=== PATIENT | male | born 1960 | race Caucasian/White ===

== ENCOUNTER 2021-11-14 07:06 | Outpatient (REF) | payer OTHER, SELFPAY ==
[2021-11-14 07:22] LABS: MANUAL DIFF FLAG NO
[2021-11-14 07:39] LABS: Appearance Urine CLEAR; Color Urine YELLOW; Glucose Urine UA NEG (NEG); Leukocyte Esterase Urine NEG (NEG); Nitrite Urine NEG (NEG); Urine Blood NEG (NEG); Urine Ketones NEG (NEG); Urine Protein NEG (NEG-TRACE)
[2021-11-14 07:44] LABS: Basophils Percent Auto 0.6 % (0-2); Eosinophils Absolute Auto 0.2 X10*3/uL (0.0-0.4); Eosinophils Percent Auto 3.3 % (0-4); Hematocrit 43.5 % (42.0-52.0); Hemoglobin 13.8 g/dl (14.0-18.0); Imm Gran Abs Auto 0.02 X10*3/uL (0.00-0.03); Imm Gran Pct Auto 0.3 % (0.0-0.4); Lymphocytes Absolute Auto 1.6 X10*3/uL (1.2-4.9); Lymphocytes Percent Auto 21.6 % (20-40); Mean Corpuscular HGB Conc 31.7 g/dl (31.0-36.0); Mean Corpuscular Hemoglobin 25.2 pg (27.0-33.0); Mean Corpuscular Volume 79.5 fL (80.0-98.0); Mean Platelet Volume 10.8 fL (9.4-12.4); Monocytes Absolute Auto 0.6 X10*3/uL (0.1-1.2); Monocytes Percent Auto 8.5 % (2-11); Neutrophils Absolute Auto 4.7 x10*3/uL (2.0-8.3); Neutrophils Percent Auto 65.7 % (45-73); Platelet Count 200 X10*3/uL (160-400); Red Blood Count 5.47 X10*6/uL (4.60-5.80); Red Cell Distribution Width 14.6 % (11.0-16.0); White Blood Count 7.2 X10*3/uL (4.8-10.8)
[2021-11-14 08:08] LABS: Alanine Aminotransferase 15 U/L (0-40); Albumin Level 4.3 g/dL (3.5-5.0); Alkaline Phosphatase 77 U/L (39-117); Anion Gap 11 (12-20); Aspartate Amino Transferase 17 U/L (5-37); Bilirubin Total 0.5 mg/dL (0.0-1.0); Blood Urea Nitrogen 13 mg/dL (9-16); Calcium 9.7 mg/dL (8.4-10.2); Carbon Dioxide 28 mmol/L (22-29); Chloride 104 mmol/L (96-108); Cholesterol 157 mg/dL; Estimated Glomerular Filt Rate > 60; Glucose Fasting 96 mg/dL (60-99); HDL Cholesterol 31 mg/dL; LDL Cholesterol Calculated 102 mg/dl; Potassium 4.7 mmol/L (3.3-5.1); Sodium 138 mmol/L (135-145); Total Protein 7.3 g/dL (6.5-8.0); Triglycerides 121 mg/dL
[2021-11-14 08:27] LABS: Estimated Average Glucose 97 mg/dL
[2021-11-14 08:29] LABS: Prostate Specific Antigen Scr 0.25 ng/mL (<0.05-4.0); TSH reflex Free T4 1.81 uIU/mL (0.32-4.0); Vitamin D 25-OH Total 29.3 ng/mL (>30)
== END 2021-11-14 07:07 | disposition home or self-care (01) ==
LOC: HO.LAB 07:06
PROVIDERS: PCP Internal Medicine; Visit Provider Internal Medicine
DX: Z00.00 Encounter for general adult medical examination without abnormal findings (principal); Z12.5 Encounter for screening for malignant neoplasm of prostate; I10 Essential (primary) hypertension; E78.00 Pure hypercholesterolemia, unspecified; E55.9 Vitamin D deficiency, unspecified; R73.01 Impaired fasting glucose
CPT/HCPCS: 36415; 80053; 80061; 81003; 82306; 83036; 84153; 84443; 85025

== ENCOUNTER → 2021-12-22 11:06 | Outpatient (BNVA) | payer OTHER, SELFPAY | PROVIDERS: PCP Internal Medicine; Visit Provider Nurse Practitioner Family | DX: R40.0 Somnolence (principal); R06.83 Snoring | CPT/HCPCS: 99202 ==

== ENCOUNTER → 2022-02-08 13:56 | Outpatient (REF) | payer OTHER, SELFPAY | LOC: HO.SL 13:56 | PROVIDERS: PCP Internal Medicine; Visit Provider Nurse Practitioner Family | DX: G47.33 Obstructive sleep apnea (adult) (pediatric) (principal); R06.83 Snoring; R40.0 Somnolence | CPT/HCPCS: 95806 ==

== ENCOUNTER 2022-07-24 07:22 | Outpatient (REF) | payer OTHER, SELFPAY ==
[2022-07-24 07:48] LABS: MANUAL DIFF FLAG NO
[2022-07-24 08:29] LABS: Basophils Percent Auto 0.7 % (0-2); Eosinophils Absolute Auto 0.2 X10*3/uL (0.0-0.4); Eosinophils Percent Auto 3.9 % (0-4); Hematocrit 44.3 % (42.0-52.0); Imm Gran Abs Auto 0.03 X10*3/uL (0.00-0.03); Imm Gran Pct Auto 0.5 % (0.0-0.4); Lymphocytes Percent Auto 17.5 % (20-40); Mean Corpuscular HGB Conc 31.6 g/dl (31.0-36.0); Mean Corpuscular Hemoglobin 25.7 pg (27.0-33.0); Mean Corpuscular Volume 81.3 fL (80.0-98.0); Mean Platelet Volume 10.9 fL (9.4-12.4); Monocytes Absolute Auto 0.7 X10*3/uL (0.1-1.2); Monocytes Percent Auto 11.6 % (2-11); Neutrophils Absolute Auto 3.8 x10*3/uL (2.0-8.3); Neutrophils Percent Auto 65.8 % (45-73); Platelet Count 196 X10*3/uL (160-400); Red Blood Count 5.45 X10*6/uL (4.60-5.80); White Blood Count 5.8 X10*3/uL (4.8-10.8)
[2022-07-24 09:17] LABS: Alanine Aminotransferase 20 U/L (0-40); Albumin Level 4.2 g/dL (3.5-5.0); Alkaline Phosphatase 82 U/L (39-117); Anion Gap 14 (12-20); Aspartate Amino Transferase 21 U/L (5-37); Bilirubin Total 0.5 mg/dL (0.0-1.0); Blood Urea Nitrogen 11 mg/dL (9-16); Carbon Dioxide 25 mmol/L (22-29); Chloride 105 mmol/L (96-108); Cholesterol 205 mg/dL; Estimated Glomerular Filt Rate > 60; Glucose Fasting 94 mg/dL (60-99); HDL Cholesterol 29 mg/dL; LDL Cholesterol Calculated 141 mg/dl; Potassium 4.6 mmol/L (3.3-5.1); Sodium 139 mmol/L (135-145); Triglycerides 179 mg/dL
[2022-07-24 09:25] LABS: Prostate Specific Antigen 0.17 ng/mL (<0.05-4.0); TSH reflex Free T4 1.65 uIU/mL (0.32-4.0); Vitamin D 25-OH Total 26.5 ng/mL (>30)
[2022-07-24 10:33] LABS: Appearance Urine Clear; Color Urine Yellow; Glucose Urine UA Negative (Negative); Leukocyte Esterase Urine Negative (Negative); Nitrite Urine Negative (Negative); Specific Gravity - Urine 1.015 (1.005-1.025); Urine Blood Negative (Negative); Urine Ketones Negative (Negative); Urine Protein Negative (Neg-Trace)
== END 2022-07-24 07:23 | disposition home or self-care (01) ==
LOC: HO.LAB 07:22
PROVIDERS: PCP Internal Medicine; Visit Provider Internal Medicine
DX: Z00.00 Encounter for general adult medical examination without abnormal findings (principal); I10 Essential (primary) hypertension; E78.00 Pure hypercholesterolemia, unspecified; N40.0 Benign prostatic hyperplasia without lower urinary tract symptoms; E55.9 Vitamin D deficiency, unspecified; Z12.5 Encounter for screening for malignant neoplasm of prostate
CPT/HCPCS: 36415; 80053; 80061; 81003; 82306; 84153; 84443; 85025

== ENCOUNTER 2022-12-13 06:15 | Outpatient (REF) | payer OTHER, SELFPAY ==
[2022-12-13 08:03] LABS: Alanine Aminotransferase 24 U/L (0-40); Albumin Level 4.2 g/dL (3.5-5.0); Alkaline Phosphatase 72 U/L (39-117); Anion Gap 11 (12-20); Aspartate Amino Transferase 21 U/L (5-37); Bilirubin Total 0.6 mg/dL (0.0-1.0); Blood Urea Nitrogen 13 mg/dL (9-16); Calcium 9.2 mg/dL (8.4-10.2); Carbon Dioxide 29 mmol/L (22-29); Chloride 108 mmol/L (96-108); Cholesterol 180 mg/dL; Estimated Glomerular Filt Rate > 60; Glucose Fasting 99 mg/dL (60-99); HDL Cholesterol 32 mg/dL; LDL Cholesterol Calculated 121 mg/dl; Potassium 4.6 mmol/L (3.3-5.1); Sodium 143 mmol/L (135-145); Total Protein 6.7 g/dL (6.5-8.0); Triglycerides 135 mg/dL
[2022-12-13 08:20] LABS: Vitamin D 25-OH Total 44.1 ng/mL (>30)
== END 2022-12-13 06:16 | disposition home or self-care (01) ==
LOC: HO.LAB 06:15
PROVIDERS: PCP Internal Medicine; Visit Provider Internal Medicine
DX: E78.00 Pure hypercholesterolemia, unspecified (principal); E55.9 Vitamin D deficiency, unspecified
CPT/HCPCS: 36415; 80053; 80061; 82306

== ENCOUNTER 2023-07-29 06:10 | Outpatient (REF) | payer OTHER, SELFPAY ==
[2023-07-29 06:27] LABS: MANUAL DIFF FLAG NO
[2023-07-29 07:27] LABS: Basophils Percent Auto 0.5 % (0-2); Eosinophils Absolute Auto 0.3 X10*3/uL (0.0-0.4); Eosinophils Percent Auto 4.7 % (0-4); Hematocrit 34.9 % (42.0-52.0); Hemoglobin 10.2 g/dl (14.0-18.0); Imm Gran Abs Auto 0.02 X10*3/uL (0.00-0.03); Imm Gran Pct Auto 0.3 % (0.0-0.4); Lymphocytes Absolute Auto 1.6 X10*3/uL (1.2-4.9); Lymphocytes Percent Auto 26.4 % (20-40); Mean Corpuscular HGB Conc 29.2 g/dl (31.0-36.0); Mean Corpuscular Hemoglobin 20.5 pg (27.0-33.0); Mean Corpuscular Volume 70.2 fL (80.0-98.0); Mean Platelet Volume 10.7 fL (9.4-12.4); Monocytes Absolute Auto 0.6 X10*3/uL (0.1-1.2); Monocytes Percent Auto 9.1 % (2-11); Neutrophils Absolute Auto 3.6 x10*3/uL (2.0-8.3); Platelet Count 265 X10*3/uL (160-400); Red Blood Count 4.97 X10*6/uL (4.60-5.80); Red Cell Distribution Width 16.5 % (11.0-16.0)
[2023-07-29 07:28] LABS: White Blood Count 6.1 X10*3/uL (4.8-10.8)
[2023-07-29 08:02] LABS: Alanine Aminotransferase 18 U/L (0-40); Albumin Level 4.3 g/dL (3.5-5.0); Alkaline Phosphatase 57 U/L (39-117); Anion Gap 12 (12-20); Aspartate Amino Transferase 19 U/L (5-37); Bilirubin Total 0.6 mg/dL (0.0-1.0); Blood Urea Nitrogen 15 mg/dL (9-16); Calcium 9.7 mg/dL (8.4-10.2); Carbon Dioxide 25 mmol/L (22-29); Chloride 107 mmol/L (96-108); Cholesterol 148 mg/dL (<200); Estimated Glomerular Filt Rate > 60; Glucose Fasting 97 mg/dL (60-99); HDL Cholesterol 37 mg/dL (>40); LDL Cholesterol Calculated 93 mg/dL (<100); Potassium 4.7 mmol/L (3.3-5.1); Sodium 139 mmol/L (135-145); Triglycerides 93 mg/dL (<150)
[2023-07-29 08:19] LABS: Vitamin D 25-OH Total 42.6 ng/mL (>30)
[2023-07-29 08:28] LABS: Appearance Urine Clear; Color Urine Yellow; Glucose Urine UA Negative (Negative); Leukocyte Esterase Urine Negative (Negative); Nitrite Urine Negative (Negative); PH 6.5 (5.0-9.0); Specific Gravity - Urine 1.015 (1.005-1.025); Urine Blood Negative (Negative); Urine Ketones Negative (Negative); Urine Protein Negative (Neg-Trace)
== END 2023-07-29 06:11 | disposition home or self-care (01) ==
LOC: HO.LAB 06:10
PROVIDERS: PCP Internal Medicine; Visit Provider Internal Medicine
DX: R30.0 Dysuria (principal); I10 Essential (primary) hypertension; E55.9 Vitamin D deficiency, unspecified; E78.00 Pure hypercholesterolemia, unspecified
CPT/HCPCS: 36415; 80053; 80061; 81003; 82306; 85025

== ENCOUNTER 2023-10-28 06:04 | Outpatient (REF) | payer OTHER, SELFPAY ==
[2023-10-28 06:29] LABS: MANUAL DIFF FLAG NO
[2023-10-28 07:25] LABS: Basophils Absolute Auto 0.1 X10*3/uL (0.0-0.2); Eosinophils Absolute Auto 0.3 X10*3/uL (0.0-0.4); Eosinophils Percent Auto 5.2 % (0-4); Hematocrit 33.5 % (42.0-52.0); Hemoglobin 9.6 g/dl (14.0-18.0); Imm Gran Abs Auto 0.02 X10*3/uL (0.00-0.03); Imm Gran Pct Auto 0.4 % (0.0-0.4); Lymphocytes Absolute Auto 1.3 X10*3/uL (1.2-4.9); Lymphocytes Percent Auto 25.4 % (20-40); Mean Corpuscular HGB Conc 28.7 g/dl (31.0-36.0); Mean Corpuscular Hemoglobin 19.6 pg (27.0-33.0); Mean Corpuscular Volume 68.2 fL (80.0-98.0); Mean Platelet Volume 10.4 fL (9.4-12.4); Monocytes Absolute Auto 0.4 X10*3/uL (0.1-1.2); Monocytes Percent Auto 8.2 % (2-11); Neutrophils Absolute Auto 3.1 x10*3/uL (2.0-8.3); Neutrophils Percent Auto 59.8 % (45-73); Platelet Count 239 X10*3/uL (160-400); Red Blood Count 4.91 X10*6/uL (4.60-5.80); Red Cell Distribution Width 17.6 % (11.0-16.0); White Blood Count 5.2 X10*3/uL (4.8-10.8)
[2023-10-28 07:43] LABS: Appearance Urine Clear; Color Urine Yellow; Glucose Urine UA Negative (Negative); Leukocyte Esterase Urine Negative (Negative); Nitrite Urine Negative (Negative); Urine Blood Negative (Negative); Urine Ketones Negative (Negative); Urine Protein Negative (Neg-Trace)
[2023-10-28 07:48] LABS: Alanine Aminotransferase 19 U/L (0-40); Albumin Level 4.1 g/dL (3.5-5.0); Alkaline Phosphatase 52 U/L (39-117); Anion Gap 14 (12-20); Aspartate Amino Transferase 19 U/L (5-37); Bilirubin Total 0.5 mg/dL (0.0-1.0); Blood Urea Nitrogen 13 mg/dL (9-16); Calcium 9.4 mg/dL (8.4-10.2); Carbon Dioxide 24 mmol/L (22-29); Chloride 108 mmol/L (96-108); Cholesterol 164 mg/dL (<200); Estimated Glomerular Filt Rate > 60; Glucose Fasting 94 mg/dL (60-99); HDL Cholesterol 36 mg/dL (>40); LDL Cholesterol Calculated 106 mg/dL (<100); Potassium 4.5 mmol/L (3.3-5.1); Sodium 141 mmol/L (135-145); Triglycerides 114 mg/dL (<150)
== END 2023-10-28 06:05 | disposition home or self-care (01) ==
LOC: HO.LAB 06:04
PROVIDERS: PCP Internal Medicine; Visit Provider Internal Medicine
DX: R30.0 Dysuria (principal); E78.00 Pure hypercholesterolemia, unspecified; I10 Essential (primary) hypertension
CPT/HCPCS: 36415; 80053; 80061; 81003; 85025

== ENCOUNTER 2023-11-02 15:31 | Outpatient (AMB) | payer OTHER, SELFPAY ==
[2023-11-02 15:35] VITALS: BP 118/82; PULSE 79; O2SAT 98; BMI 35.0
--- NOTE | 2023-11-02 15:35 | A.OFFPC_ITS ---
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 Accompanied by: Self / Same As Patient Allergies No Known Allergies [No Known Allergies*] Allergy (Verified 11/02/23 16:11) Medication List - Last Reconciled 11/02/23 by Mahamed Matos MD atorvastatin 10 mg PO BEDTIME 90 days ketoconazole 2% topical lisinopril 5 mg PO DAILY 90 days Tobacco use date assessed: 11/02/23 Dental Screening Dental Screen Date: 11/02/23 Did you have a dental visit in the last 12 months?: Yes Did you have a dental problem in the last 6 months where you did not have access to dental care?: No Was dental information given to patient?: Patient has dentist HPI HTN, hyperlipidemia HPI Details Patient comes in today for his follow up visit States that he feels okay Has noticed some fatigue lately but states that he has been working long hours often lately and was attributing his fatigue to that He denies any headaches or dizziness Denies any chest pains, no SOB No nausea/vomiting, no abdominal pain No change in bowel habits noted Had his follow up labs done a few days ago - to discuss his results [facility] Medical History Obstructive sleep apnea Vitamin D deficiency Pure hypercholesterolemia Obesity (BMI 30-39.9) Benign essential hypertension Surgical History Hx of colonoscopy (~09/2018) History of reversal of ileostomy S/P colon resection History of tonsillectomy and adenoidectomy Family History Father No problems noted. Mother Diabetes Hypertension Asthma Social History Housing: House Alcohol intake: current Alcohol intake frequency: holidays/special occasions only Alcohol type: beer Patient Tobacco Use Status: Former Tobacco user e-Cigarette/Vaping Use: Never Used Second Hand Smoke Exposure: Yes service: No Current occupational status: employed Cognitive needs: No Hearing needs: No Vision needs: Yes Questionnaire PHQ-9 Over the last 2 weeks, how often have you been bothered by any of the following problems? 1. Little interest or pleasure in doing things: not at all 2. Feeling down, depressed, or hopeless: not at all 3. Trouble falling or staying asleep, or sleeping too much: not at all 4. Feeling tired or having little energy: not at all 5. Poor appetite or overeating: not at all 6. Feeling bad about yourself - or that you are a failure or have let yourself or your family down: not at all 7. Trouble concentrating on things, such as reading the newspaper or watching television: not at all 8. Moving or speaking so slowly that other people could have noticed. Or the opposite - being so fidgety or restless that you have been moving around a lot more than usual: not at all 9. Thoughts that you would be better off or of hurting yourself in some way: not at all Total score: 0 Depression Screening Interpretation: Negative Depression Screening Done: Yes 38086 - PHQ-9 Billing: Yes Source: Developed by Drs. Mahendra Gonzalez, Nini Martinez, Howard Paredes and colleagues, with an educational festus from [employer]. Thrive Questionnaire Date Thrive assessed: 11/02/23 I am a: Patient What is your living situation today?: I have a steady place to live Within the past 12 months, did the food you bought not last and you didn't have the money to get more?: Never true Within the past 12 months, did you worry whether your food would run out before you got money to buy more?: Never true Do you have trouble paying for medicines?: No Do you have trouble getting transportation to medical appointments?: No Do you have trouble paying your heating and electricity bill?: No Do you have trouble taking care of your child, family member or friend?: No Do you have trouble with day-to-day activities such as bathing, preparing meals, shopping, managing finances, etc.?: No Are you currently unemployed and looking for a job?: No Are you interested in more education?: No Please select the resources that you would like help with: None Currently or been in a relationship where the following occur: no concerns reported THRIVE Score: 0 AUDIT C Alcohol Use Questionnaire (AUDIT-C) 1. How often do you have a drink containing alcohol?: Never 3. How often do you have six or more drinks on one occasion?: Never Total Score: 0 Score Reviewed/Action Taken: Yes BRITTNI-7 AMB Questionnaire BRITTNI-7 Date BRITTNI - 7 assessed: 11/02/23 Feeling nervous, anxious, or on edge: 0 = Not at all Not being able to stop or control worryin = Not at all Worrying too much about different things: 0 = Not at all Trouble relaxin = Not at all Being so restless that it is hard to sit still: 0 = Not at all Becoming easily annoyed or irritable: 0 = Not at all Feeling afraid as if something awful might happen: 0 = Not at all Total BRITTNI-7 score (0-4 normal; 5-9 mild; 10-14 moderate; 15-21 severe): 0 Source: Developed by Drs. Mahendra Gonzalez, Nini Martinez, Howard Paredes and colleagues, with an educational festus from [employer]. Review of Systems Const Denies chills, Denies fatigue, Denies fever(s) and Denies headache(s) ENT Denies dysphagia, Denies dizziness, Denies otalgia, Denies headache(s), Denies neck pain, Denies odynophagia and Denies sore throat Card Denies chest pain, Denies palpitations and Denies dyspnea Resp Denies cough, Denies dyspnea and Denies wheezing GI Denies abdominal pain, Denies constipation, Denies dysphagia, Denies heartburn, Denies diarrhea, Denies nausea, Denies odynophagia and Denies vomiting Denies dysuria, Denies nocturia and Denies urinary frequency Musc Denies back pain and Denies neck pain Skin/Breast Denies rash Neuro Denies dizziness and Denies headache(s) Endo Denies fatigue and Denies palpitations Aller/Immun Denies wheezing Physical exam (Primary Care) Vital Signs: Last Vital Signs Pulse 79 11/02/23 15:35 BP 118/82 11/02/23 15:35 Pulse Ox 98 11/02/23 15:35 Oxygen Delivery Method Room Air 11/02/23 15:35 BMI result Body Mass Index 35.0 Tobacco/Smoking Status: Tobacco use Status Tobacco use date assessed 11/02/23 11/02/23 15:37 Patient Tobacco Use Status Former Tobacco user 11/02/23 15:37 e-Cigarette/Vaping Use Never Used 11/02/23 15:37 PHQ-9: PHQ-9 Score PHQ-9: Total score 0 11/02/23 15:37 Depression Screening Interpretation: Negative Thrive Assessment: Date of Thrive Assessment Date Thrive assessed 11/02/23 11/02/23 15:37 Currently or been in a relationship where the following occur: no concerns reported Const General: no acute distress and alert HENMT Ears: TM's normal bilaterally and EAC's normal Throat: Yes posterior oropharynx normal and Yes tonsils normal (no TP congesti on) Neck Neck: Yes no lymphadenopathy and Yes supple Resp Auscultation: clear to auscultation bilaterally, no rales and no wheezes Cardio Rate: regular rate Rhythm: regular rhythm Heart sounds: no murmurs GI Palpation (GI): Soft to palpation and nontender Auscultation: normal bowel sounds Extrem General: Yes no clubbing, cyanosis or edema Results Reviewed Results Reviewed: Laboratory Tests 07/29/23 10/28/23 10/28/23 06:25 06:26 06:26 WBC Hgb Hct MCV MCH MCHC RDW Plt Count Sodium Potassium Creatinine Estimated GFR Fasting Glucose Calcium AST ALT Triglycerides Cholesterol LDL Cholesterol, Calc HDL Cholesterol 25-OH Vitamin D Total 42.6 Ur Specific [place] 1.020 Urine Protein Negative Urine Glucose (UA) Negative Urine Blood Negative Urine Nitrite Negative Ur Leukocyte Esterase Negative 10/28/23 06:28 WBC 5.2 Hgb 9.6 L Hct 33.5 L MCV 68.2 L MCH 19.6 L MCHC 28.7 L RDW 17.6 H Plt Count 239 Sodium 141 Potassium 4.5 Creatinine 1.05 Estimated GFR > 60 Fasting Glucose 94 Calcium 9.4 AST 19 ALT 19 Triglycerides 114 Cholesterol 164 LDL Cholesterol, Calc 106 H HDL Cholesterol 36 L 25-OH Vitamin D Total Ur Specific [place] Urine Protein Urine Glucose (UA) Urine Blood Urine Nitrite Ur Leukocyte Esterase Assessment and Plan Assessment & Plan (1) Pure hypercholesterolemia: Code(s): E78.00 - Pure hypercholesterolemia, unspecified Plan: Results of his labs done a few days ago reviewed and discussed with patient Reinforced low cholesterol diet Continue Atorvastatin 10 mg QD Will recheck his labs and fasting lipids in 4 months for follow up (2) Benign essential hypertension: Code(s): I10 - Essential (primary) hypertension Plan: Reinforced low sodium diet - goal is systolic BP of at least 130 mm or less Continue Lisinopril 5 mg QD (3) Anemia, iron deficiency: Code(s): D50.9 - Iron deficiency anemia, unspecified Qualifiers: Iron deficiency anemia type: inadequate dietary iron intake Qualified Code(s): D50.8 - Other iron deficiency anemias Plan: He is advised that his recent labs show (+) anemia, which appears to be likely due to iron deficiency (low MCV and MCH and high RDW) Will start patient on Ferrous sulfate 325 mg QD Will recheck his CBC in 4 months for follow up (4) Vitamin D deficiency: Code(s): E55.9 - Vitamin D deficiency, unspecified Plan: Continue Vitamin D3 2000 units QD (5) Obstructive sleep apnea: Code(s): G47.33 - Obstructive sleep apnea (adult) (pediatric) Plan: Follow up with Sleep Medicine as scheduled (6) Obesity (BMI 30-39.9): Code(s): E66.9 - Obesity, unspecified Plan: Reinforced diet/exercise as tolerated/lose weight (7) Colon cancer screening: Code(s): Z12.11 - Encounter for screening for malignant neoplasm of colon Plan: He is also currently due for a repeat colonoscopy, especially in light of his recent anemia Colonoscopy was last done by Dr. Ahn in 2018 and recommend repeat in 5 years Will refer him back to Dr. Ahn for repeat colonoscopy Plan Follow up in 4 months Orders: Orders Complete Blood Count Auto Diff 4 Months D64.9 - Anemia, unspecified Vitamin B12 and Folate 4 Months E53.8 - Deficiency of other specified B group vitamins Comprehensive [place]. Panel Fast 4 Months E78.00 - Pure hypercholesterolemia, unspecified Lipid Panel 4 Months E78.00 - Pure hypercholesterolemia, unspecified Vitamin D 25-OH Total 4 Months E55.9 - Vitamin D deficiency, unspecified TSH reflex Free T4 4 Months E78.00 - Pure hypercholesterolemia, unspecified Referrals General Surgery Referral Z12.11 - Encounter for screening for malignant neoplasm of colon, Z90.49 - Acquired absence of other specified parts of digestive tract Coding Level of Care Code Est Pt Level 4 (25220) Diagnoses Pure hypercholesterolemia E78.00 Benign essential hypertension I10 Iron deficiency anemia secondary to inadequate dietary iron intake D50.8 Iron deficiency anemia type: inadequate dietary iron intake Vitamin D deficiency E55.9 Obstructive sleep apnea G47.33 Obesity (BMI 30-39.9) E66.9 Colon cancer screening Z12.11
== END 2023-11-02 16:24 | disposition home or self-care (01) ==
PROVIDERS: PCP Internal Medicine; Visit Provider Internal Medicine
DX: E78.00 Pure hypercholesterolemia, unspecified (principal); I10 Essential (primary) hypertension; D50.8 Other iron deficiency anemias; E55.9 Vitamin D deficiency, unspecified; G47.33 Obstructive sleep apnea (adult) (pediatric)
CPT/HCPCS: 99214

== ENCOUNTER 2023-11-14 12:51 | Outpatient (AMB) | payer OTHER, SELFPAY ==
--- NOTE | 2023-11-14 13:01 | A.OFFVIS_ITS ---
Intake Vital Signs 11/14/23 13:06 Height 5 ft 9 in Weight 238 lb BMI 35.1 Intake Visit Reasons: Colonoscopy consult Intake Note: This patient presents for a recall colonoscopy screening. Pt c/o; reports iron deficiency anemia , reports dark stools, reports tiredness, reports fatigue, reports more frequent headaches, reports dizziness at the end of the day. 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 He has a history of right colon resection for colon cancer in 2014. His last colonoscopy was in 2018. He had been recommended to undergo a colonoscopy every 5 years He currently denies GI complaints. He does state that occasionally, is to go to the bathroom twice in 1 day. He also says that he has had some headaches and low energy level the past month or so. His hemoglobin was 9.6 on a routine blood test last month. [facility] Medical History History of colon cancer Obstructive sleep apnea Vitamin D deficiency Pure hypercholesterolemia Obesity (BMI 30-39.9) Benign essential hypertension Surgical History Hx of colonoscopy (~09/2018) History of reversal of ileostomy S/P colon resection History of tonsillectomy and adenoidectomy Family History Father No problems noted. Mother Diabetes Hypertension Asthma Social History Housing: House Alcohol intake: current Alcohol intake frequency: holidays/special occasions only Alcohol type: beer Patient Tobacco Use Status: Former Tobacco user e-Cigarette/Vaping Use: Never Used Second Hand Smoke Exposure: Yes service: No Current occupational status: employed Cognitive needs: No Hearing needs: No Vision needs: Yes Review of Systems Const Denies chills and Denies fever(s) Card Denies chest pain, Denies dyspnea and Denies dyspnea on exertion Resp Denies cough, Denies dyspnea and Denies dyspnea on exertion GI Denies hematochezia and Denies change in bowel habits Denies hematuria and Denies difficulty urinating Musc Denies back pain and Denies limited range of motion Neuro Denies focal weakness and Denies convulsions Psych Denies depression and Denies mood swings Physical Exam Vital Signs: BMI result Body Mass Index 35.1 Const General: comfortable and no acute distress Orientation/consciousness: patient oriented x3 Neck Neck: Yes no lymphadenopathy Resp Auscultation: clear to auscultation bilaterally Cardio Rhythm: regular rhythm GI Palpation (GI): Soft to palpation, nontender and no guarding Neuro General: patient oriented x3 Assessment & Plan Assessment & Plan (1) History of colon cancer: Code(s): Z85.038 - Personal history of other malignant neoplasm of large intestine Plan: I reviewed with him the technique of colonoscopy for screening in view of his personal history of colon cancer. He is anemic as well hemoglobin 1.6 on a blood draw from last month. I explained the risks including but not limited to bleeding, infections, perforation, inherent risks of anesthesia, as well as the benefits and alternatives. He has given consent. Coding Level of Care Code New Pt Level 3 (39672) Diagnoses History of colon cancer Z85.038
[2023-11-14 13:06] VITALS: BMI 35.1
== END 2023-11-14 14:03 | disposition home or self-care (01) ==
PROVIDERS: PCP Internal Medicine; Referring Provider Internal Medicine; Visit Provider Surgery
DX: Z85.038 Personal history of other malignant neoplasm of large intestine (principal)
CPT/HCPCS: 99203

== ENCOUNTER → 2023-11-14 12:51 | Outpatient (BNVA) | payer OTHER, SELFPAY | PROVIDERS: PCP Internal Medicine; Referring Provider Internal Medicine; Visit Provider Surgery ==

== ENCOUNTER 2023-12-02 06:32 | Day surgery (SDC) | payer OTHER, SELFPAY ==
[2023-11-30 07:41] VITALS: BMI 35.3
--- NOTE | 2023-11-30 15:09 | HO.ANESPROP2 ---
HPI - Anesthesia Eval Consult details Narrative: 63yo M for Colonoscopy, possible polypectomy Hx ileostomy s/p reversal PMFSH Active Problems Active Problems: All Active Problems (Updated 11/14/23 @ 13:05 by Erick Ahn MD) History of colon cancer (Acute) Colon cancer screening (Acute) Anemia, iron deficiency (Acute) Keratotic lesion (Acute) Obstructive sleep apnea (Acute) Annual physical exam (Acute) Snoring (Acute) Daytime somnolence (Acute) Vitamin D deficiency (Acute) Pure hypercholesterolemia (Acute) Obesity (BMI 30-39.9) (Acute) Benign essential hypertension (Acute) Past Medical History Medical History History of colon cancer Obstructive sleep apnea Vitamin D deficiency Pure hypercholesterolemia Obesity (BMI 30-39.9) Benign essential hypertension Family History Family History Father No problems noted. Mother Diabetes Hypertension Asthma Surgical History Surgical History Hx of colonoscopy (~09/2018) History of reversal of ileostomy S/P colon resection History of tonsillectomy and adenoidectomy Social History Social History Housing: House Alcohol intake: current Alcohol intake frequency: former alcohol drinker Alcohol type: beer Patient Tobacco Use Status: Former Tobacco user Quit Date: 25 years e-Cigarette/Vaping Use: Never Used Second Hand Smoke Exposure: Yes Use of substances other than those prescribed or required for medical reasons: No Are you DNR?: No Advance Directives: No Advance Directives Information Provided: Yes service: No Current occupational status: employed Cognitive needs: No Hearing needs: No Vision needs: Yes Meds Allergies Allergy/AdvReac Type Severity Reaction Status Date / Time No Known Allergies Allergy Verified 11/14/23 13:10 [No Known Allergies*] Home Medications Medication Instructions Recorded Confirmed Last Taken Type ketoconazole 2 % shampoo topical 11/02/23 11/14/23 Unknown History cholecalciferol (vitamin D3) 125 125 mcg PO DAILY 11/14/23 12/02/23 Unknown History mcg (5,000 unit) capsule ferrous sulfate 325 mg (65 mg 325 mg PO DAILY 11/14/23 12/02/23 11/28/23 History iron) tablet (FeroSul) multivitamin with minerals-folic 1 tab PO DAILY 11/14/23 12/02/23 Unknown History acid 80 mcg chewable tablet (Centrum Adult 50 Plus) Exam Height,Weight and Vital Signs: Height 5 ft 9 in Weight 108.409 kg Assessment and Plan Assessment Anesthesia Assessment: Chart Reviewed
[2023-12-02 06:48] VITALS: BP 143/72; PULSE 58; RESP 18; TEMP 36.3; O2SAT 99; BMI 34.8
[2023-12-02] MEDS: Lactated Ringers 1,000 ML 100 ML IVCONT (07:07)
--- NOTE | 2023-12-02 07:20 | MHC.SHP ---
Pre-Procedural Eval Section A - 24 Hr Update-Section A only Date of Service: 12/02/23 The patient is an INPATIENT: No Changes since office visit: No Cold of Flu in the past 2 weeks, No New Medical Problems, No Changes in Medication and No Patient answered all questions The patient has been examined within 24 hours of the surgical procedure. The History & Physical has been completed within 30 days and I have reviewed it.: Yes Section B - Complete if H&P > 30 days Chief Complaint: Personal history of other malignant neoplasm of la Allergies: Allergies Allergy/AdvReac Type Severity Reaction Status Date / Time No Known Allergies Allergy Verified 11/14/23 13:10 [No Known Allergies*] Plan I have reviewed the history and physical and performed a pertinent physical examination on my patient. No changes have occurred unless specified. Time Spent With Patient Time: Total time managing care of this patient today ____ minutes.
--- NOTE | 2023-12-02 07:57 | P.OP_ITS ---
Operative Note Operative Note Date of Service: 12/02/23 Narrative: Preop diagnosis: History of colon cancer Postop diagnosis: Normal colonoscopy findings Procedure: Colonoscopy Surgeon: Erick Ahn MD The patient is a 63-year-old male who had undergone right colon resection for colon cancer in 2014. He is supposed to have a colonoscopy be 5 years. He understands the technique of the procedure as well as the risks, benefits, and alternatives. The patient was brought to the operating room and placed in left lateral decubitus position under monitored anesthesia care. A surgical time-out was done. A full digital rectal exam was done and this did not reveal any signi ficant anal lesions. The tip of the Olympus colonoscope was gently introduced through the anal orifice advanced with insufflation until we identified transition into the small bowel mucosa. The anastomosis appeared patent without any lesions. We advanced the scope past the anastomosis Transiition from colonic to small bowel mucosa was noted and I proceeded to carefully withdraw the scope. We withdrew the scope carefully with examination of the colonic mucosa being done with scope withdrawal. The patient had good bowel prep and it was unlikely that any lesion may have been missed. There were no lesions seen, there was no polyp or any ulceration. There was no blood in the colon. The rectum was examined The anal canal was unremarkable. The scope was then withdrawn completely with desufflation. The patient tolerated the procedure well. There were no immediate complications. In view of his history of colon cancer, he should have a colonoscopy every 5 years. He does have anemia as well so if this persists, he should have an EGD to and he was reminded about this.
[2023-12-02 07:58] VITALS: BP 116/56; PULSE 59; RESP 16; TEMP 36.2; O2SAT 95
--- NOTE | 2023-12-02 08:07 | HO.ANESPROP2 ---
[facility] Active Problems Active Problems: All Active Problems (Updated 11/14/23 @ 13:05 by Erick Ahn MD) History of colon cancer (Acute) Colon cancer screening (Acute) Anemia, iron deficiency (Acute) Keratotic lesion (Acute) Obstructive sleep apnea (Acute) Annual physical exam (Acute) Snoring (Acute) Daytime somnolence (Acute) Vitamin D deficiency (Acute) Pure hypercholesterolemia (Acute) Obesity (BMI 30-39.9) (Acute) Benign essential hypertension (Acute) Past Medical History Medical History History of colon cancer Obstructive sleep apnea Vitamin D deficiency Pure hypercholesterolemia Obesity (BMI 30-39.9) Benign essential hypertension Functional capacity: independent ambulation Family History Family History Father No problems noted. Mother Diabetes Hypertension Asthma Family history of problems with anesthesia: No Surgical History Surgical History Hx of colonoscopy (~09/2018) History of reversal of ileostomy S/P colon resection History of tonsillectomy and adenoidectomy History of Problems with Anesthesia: No Social History Social History Housing: House Alcohol intake: current Alcohol intake frequency: former alcohol drinker Alcohol type: beer Patient Tobacco Use Status: Former Tobacco user Quit Date: 25 years e-Cigarette/Vaping Use: Never Used Second Hand Smoke Exposure: Yes Use of substances other than those prescribed or required for medical reasons: No Are you DNR?: No Advance Directives: No Advance Directives Information Provided: Yes service: No Current occupational status: employed Cognitive needs: No Hearing needs: No Vision needs: Yes Meds Allergies Allergy/AdvReac Type Severity Reaction Status Date / Time No Known Allergies Allergy Verified 11/14/23 13:10 [No Known Allergies*] Active Medications: Current Medications Lactated Ringer's (Lr) 1,000 mls @ 100 mls/hr IVCONT .Q10H JOE Last Admin: 12/02/23 07:07 Dose: 100 mls/hr Home Medications Medication Instructions Recorded Confirmed Last Taken Type ketoconazole 2 % shampoo topical 11/02/23 11/14/23 Unknown History cholecalciferol (vitamin D3) 125 125 mcg PO DAILY 11/14/23 12/02/23 Unknown History mcg (5,000 unit) capsule ferrous sulfate 325 mg (65 mg 325 mg PO DAILY 11/14/23 12/02/23 11/28/23 History iron) tablet (FeroSul) multivitamin with minerals-folic 1 tab PO DAILY 11/14/23 12/02/23 Unknown History acid 80 mcg chewable tablet (Centrum Adult 50 Plus) Exam Height,Weight and Vital Signs: Height 5 ft 9 in Weight 107.048 kg Last Vital Signs Temp 97.2 F 12/02/23 07:58 Pulse 59 12/02/23 07:58 Resp 16 12/02/23 07:58 BP 116/56 L 12/02/23 07:58 Pulse Ox 95 12/02/23 07:58 O2 Del Method Room Air 12/02/23 07:58 Airway Mallampati Class: III TM Dist: >3cm Neck ROM: Full Heart: RRR Lungs: CTA Assessment and Plan Assessment Anesthesia Assessment: Anesthesia Plan Discussed Final Anesthetic Review Family History of Problems with Anesthesia: No History of Problems with Anesthesia: No NPO: Yes ASA Class: II Final Preanesthetic Review: Meds/Allgs Chart Reviewed, Consent Obtained/Reviewed and Anes Risks/Benef Reviewed Patient Risk: Low Procedure Risk: Low Anesthetic Plan Anesthetic Plan: MAC: Disposition: Standard PACU
--- NOTE | 2023-12-02 08:10 | HO.POSTANES ---
Post Anesthesia Evaluation Post Anesthesia Evaluation Date of Service: 12/02/23 Vital Signs: Vital Signs Temp Pulse Resp BP Pulse Ox O2 Del Method 12/02/23 07:58 97.2 F 59 16 116/56 L 95 Room Air 12/02/23 06:48 97.3 F 58 18 143/72 H 99 Room Air Anesthesia: Monitored Mental Status: Awake Pain Control: Satisfactory Nausea/Vomiting: None Hydration: Adequate Anesthesia-Related Issues: No Anes. Related Issues
[2023-12-02 08:21] VITALS: BP 134/66; PULSE 57; RESP 17; TEMP 36.2; O2SAT 97
== END 2023-12-02 08:47 | disposition home or self-care (01) ==
PROVIDERS: PCP Internal Medicine; Visit Provider Surgery
PROC: 0DJD8ZZ Inspection of Lower Intestinal Tract, Via Natural or Artificial Opening Endoscopic (ICD-10-PCS; CPT 45378; principal; 2023-12-02 07:30)
DX: Z12.11 Encounter for screening for malignant neoplasm of colon (principal); Z85.038 Personal history of other malignant neoplasm of large intestine; Z90.49 Acquired absence of other specified parts of digestive tract; D50.9 Iron deficiency anemia, unspecified; I10 Essential (primary) hypertension; E78.00 Pure hypercholesterolemia, unspecified; E55.9 Vitamin D deficiency, unspecified; R51.9 Headache, unspecified; R53.83 Other fatigue; G47.33 Obstructive sleep apnea (adult) (pediatric); E66.9 Obesity, unspecified; Z68.35 Body mass index [BMI] 35.0-35.9, adult; Z79.899 Other long term (current) drug therapy; Z87.891 Personal history of nicotine dependence
CPT/HCPCS: 45378; J2704

== ENCOUNTER → 2023-12-02 06:32 | Outpatient (BNV) | payer OTHER, SELFPAY | PROVIDERS: PCP Internal Medicine; Visit Provider Surgery | DX: Z85.038 Personal history of other malignant neoplasm of large intestine (principal) | CPT/HCPCS: 45378 ==

== ENCOUNTER 2023-12-15 11:08 | Outpatient (AMB) | payer OTHER, SELFPAY ==
--- NOTE | 2023-12-15 11:20 | A.OFFVIS_ITS ---
Intake Vital Signs 12/15/23 11:21 Height 5 ft 9 in Weight 236 lb BMI 34.8 BP 175/74 H Blood Pressure Location Rt brachial Position Sitting Pulse 71 Intake Visit Reasons: S/P colonoscopy Intake Note: This patient presents for a follow-up assessment status post colonoscopy. Patient c/o; no concerns, reports procedure went well. Inspector Clip On Sunglasses Required: No Accompanied by: Self / Same As Patient Allergies No Known Allergies [No Known Allergies*] Allergy (Verified 12/15/23 11:22) HPI S/P colonoscopy HPI Details He underwent colonoscopy last 12/02/2023. He tolerated the procedure well. He denies complaints at this time. [facility] Medical History History of colon cancer Obstructive sleep apnea Vitamin D deficiency Pure hypercholesterolemia Obesity (BMI 30-39.9) Benign essential hypertension Surgical History Hx of colonoscopy (~09/2018) History of reversal of ileostomy S/P colon resection History of tonsillectomy and adenoidectomy Family History Father No problems noted. Mother Diabetes Hypertension Asthma Social History Housing: House Alcohol intake: current Alcohol intake frequency: former alcohol drinker Alcohol type: beer Patient Tobacco Use Status: Former Tobacco user Quit Date: 25 years e-Cigarette/Vaping Use: Never Used Second Hand Smoke Exposure: Yes service: No Current occupational status: employed Cognitive needs: No Hearing needs: No Vision needs: Yes Review of Systems Const Denies chills and Denies fever(s) Card Denies chest pain, Denies dyspnea and Denies dyspnea on exertion Resp Denies cough, Denies dyspnea and Denies dyspnea on exertion GI Denies hematochezia and Denies change in bowel habits Denies hematuria and Denies difficulty urinating Musc Denies back pain and Denies limited range of motion Neuro Denies focal weakness and Denies convulsions Psych Denies depression and Denies mood swings Physical Exam Vital Signs: Last Vital Signs Pulse 71 12/15/23 11:21 BP 175/74 H 12/15/23 11:21 BMI result Body Mass Index 34.8 Const General: comfortable and no acute distress Resp Effort & Inspection: normal respiratory effort GI Other: Obese Palpation (GI): Soft to palpation, not firm and nontender Assessment & Plan Assessment & Plan (1) History of colon cancer: Code(s): Z85.038 - Personal history of other malignant neoplasm of large intestine Plan: Status post colonoscopy. I did not find any polyps or any lesions. The anastomotic site was seen I told him that in view of his history of colon cancer, he should have a colonoscopy every 5 years. He did have anemia and had been prescribed iron supplements. He says that he is being followed by his PCP for this. Coding Level of Care Code Global (80362) Diagnoses History of colon cancer Z85.038
[2023-12-15 11:21] VITALS: BP 175/74; PULSE 71; BMI 34.8
== END 2023-12-15 11:28 | disposition home or self-care (01) ==
PROVIDERS: PCP Internal Medicine; Visit Provider Surgery
DX: Z85.038 Personal history of other malignant neoplasm of large intestine (principal)
CPT/HCPCS: 99024

== ENCOUNTER → 2023-12-15 11:08 | Outpatient (BNVA) | payer OTHER, SELFPAY | PROVIDERS: PCP Internal Medicine; Visit Provider Surgery ==

== ENCOUNTER 2024-02-18 07:21 | Outpatient (REF) | payer OTHER, SELFPAY ==
[2024-02-18 07:32] LABS: MANUAL DIFF FLAG NO
[2024-02-18 08:34] LABS: Basophils Percent Auto 0.8 % (0-2); Eosinophils Absolute Auto 0.2 X10*3/uL (0.0-0.4); Eosinophils Percent Auto 3.8 % (0-4); Hematocrit 48.9 % (42.0-52.0); Imm Gran Abs Auto 0.04 X10*3/uL (0.00-0.03); Imm Gran Pct Auto 0.8 % (0.0-0.4); Lymphocytes Absolute Auto 1.5 X10*3/uL (1.2-4.9); Lymphocytes Percent Auto 27.3 % (20-40); Mean Corpuscular HGB Conc 33.1 g/dl (31.0-36.0); Mean Corpuscular Hemoglobin 27.6 pg (27.0-33.0); Mean Corpuscular Volume 83.3 fL (80.0-98.0); Mean Platelet Volume 10.4 fL (9.4-12.4); Monocytes Absolute Auto 0.6 X10*3/uL (0.1-1.2); Monocytes Percent Auto 10.5 % (2-11); Neutrophils Percent Auto 56.8 % (45-73); Platelet Count 194 X10*3/uL (160-400); Red Blood Count 5.87 X10*6/uL (4.60-5.80); Red Cell Distribution Width 17.8 % (11.0-16.0); White Blood Count 5.3 X10*3/uL (4.8-10.8)
[2024-02-18 08:41] LABS: Hemoglobin 16.2 g/dl (14.0-18.0)
[2024-02-18 08:50] LABS: Alanine Aminotransferase 25 U/L (0-40); Albumin Level 4.3 g/dL (3.5-5.0); Alkaline Phosphatase 57 U/L (39-117); Anion Gap 13 (12-20); Aspartate Amino Transferase 20 U/L (5-37); Bilirubin Total 0.6 mg/dL (0.0-1.0); Blood Urea Nitrogen 11 mg/dL (9-16); Calcium 9.3 mg/dL (8.4-10.2); Carbon Dioxide 25 mmol/L (22-29); Chloride 106 mmol/L (96-108); Cholesterol 172 mg/dL (<200); Estimated Glomerular Filt Rate > 60; Glucose Fasting 77 mg/dL (60-99); HDL Cholesterol 37 mg/dL (>40); LDL Cholesterol Calculated 103 mg/dL (<100); Potassium 4.1 mmol/L (3.3-5.1); Sodium 140 mmol/L (135-145); Total Protein 7.1 g/dL (6.5-8.0); Triglycerides 164 mg/dL (<150)
[2024-02-18 09:10] LABS: Folate 14.4 ng/mL (> or = 4.0); Vitamin B12 377 pg/mL (200-900)
[2024-02-18 09:13] LABS: TSH reflex Free T4 1.83 uIU/mL (0.32-4.0); Vitamin D 25-OH Total 38.9 ng/mL (>30)
== END 2024-02-18 07:22 | disposition home or self-care (01) ==
LOC: HO.LAB 07:21
PROVIDERS: PCP Internal Medicine; Visit Provider Internal Medicine
DX: E53.8 Deficiency of other specified B group vitamins (principal); E78.00 Pure hypercholesterolemia, unspecified; D64.9 Anemia, unspecified; E55.9 Vitamin D deficiency, unspecified
CPT/HCPCS: 36415; 80053; 80061; 82306; 82607; 82746; 84443; 85025

== ENCOUNTER 2024-03-02 15:49 | Outpatient (AMB) | payer OTHER, SELFPAY ==
[2024-03-02 15:51] VITALS: BP 132/84; PULSE 85; O2SAT 97; BMI 34.6
--- NOTE | 2024-03-02 15:51 | MHC.PC.OV ---
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 per policy Accompanied by: Self / Same As Patient Allergies No Known Allergies [No Known Allergies*] Allergy (Verified 03/02/24 16:16) Medication List - Last Reconciled 03/02/24 by Mahamed Matos MD atorvastatin 10 mg PO BEDTIME 90 days cholecalciferol (vitamin D3) 125 mcg PO DAILY ferrous sulfate (FeroSul) 325 mg PO DAILY ketoconazole 2% topical lisinopril 5 mg PO DAILY 90 days multivit with min-folic acid 80 mcg (Centrum Adult 50 Plus) 1 tab PO DAILY sodium,potassium,mag sulfates 17.5-3.13-1.6 gram (Suprep Bowel Prep Kit) DILUTE; drink full amount early evening before AND next morning at least 2 hr before procedure; follow w 960 mL water PO Tobacco use date assessed: 11/02/23 Dental Screening Dental Screen Date: 11/02/23 HPI 4 month f/u hyperlipidemia, HTN, anemia HPI Details Patient comes in today for his follow up visit States that he feels okay He denies any headaches or dizziness Denies any chest pains, no SOB No nausea/vomiting, no abdominal pain No change in bowel habits noted He had a repeat colonoscopy done with Dr. Ahn in December 2023 - colonoscopy was normal and he was again recommended for a repeat colonoscopy in 5 years due to his personal Hx of colon cancer He had his follow up labs done a couple of weeks ago - to discuss his results [facility] Medical History History of colon cancer Obstructive sleep apnea Vitamin D deficiency Pure hypercholesterolemia Obesity (BMI 30-39.9) Benign essential hypertension Surgical History Hx of colonoscopy (~09/2018) History of reversal of ileostomy S/P colon resection History of tonsillectomy and adenoidectomy Family History Father No problems noted. Mother Diabetes Hypertension Asthma Social History Housing: House Alcohol intake: current Alcohol intake frequency: former alcohol drinker Alcohol type: beer Patient Tobacco Use Status: Former Tobacco user e-Cigarette/Vaping Use: Never Used Second Hand Smoke Exposure: Yes service: No Current occupational status: employed Cognitive needs: No Hearing needs: No Vision needs: Yes Questionnaire Thrive Questionnaire Date Thrive assessed: 11/02/23 BRITTNI-7 AMB Questionnaire BRITTNI-7 Date BRITTNI - 7 assessed: 11/02/23 Source: Developed by Drs. Mahendra Gonzalez, Nini Martinez, Howard Paredes and colleagues, with an educational festus from [employer]. Review of Systems Const Denies chills, Denies fatigue, Denies fever(s) and Denies headache(s) ENT Denies dysphagia, Denies dizziness, Denies otalgia, Denies headache(s), Denies neck pain, Denies odynophagia and Denies sore throat Card Denies chest pain, Denies palpitations and Denies dyspnea Resp Denies cough, Denies dyspnea and Denies wheezing GI Denies abdominal pain, Denies constipation, Denies dysphagia, Denies heartburn, Denies diarrhea, Denies nausea, Denies odynophagia and Denies vomiting Denies dysuria, Denies nocturia and Denies urinary frequency Musc Denies back pain and Denies neck pain Skin/Breast Denies rash Neuro Denies dizziness and Denies headache(s) Endo Denies fatigue and Denies palpitations Aller/Immun Denies wheezing Physical exam (Primary Care) Vital Signs: Last Vital Signs Pulse 85 03/02/24 15:51 BP 132/84 03/02/24 15:51 Pulse Ox 97 03/02/24 15:51 Oxygen Delivery Method Room Air 03/02/24 15:51 BMI result Body Mass Index 34.6 Tobacco/Smoking Status: Tobacco use Status Tobacco use date assessed 11/02/23 03/02/24 15:56 Patient Tobacco Use Status Former Tobacco user 03/02/24 15:56 e-Cigarette/Vaping Use Never Used 03/02/24 15:56 Thrive Assessment: Date of Thrive Assessment Date Thrive assessed 11/02/23 03/02/24 15:56 Const General: no acute distress and alert HENMT Ears: TM's normal bilaterally and EAC's normal Throat: Yes posterior oropharynx normal and Yes tonsils normal (no TP congestion) Neck Neck: Yes no lymphadenopathy and Yes supple Thyroid: Thyroid normal Resp Auscultation: clear to auscultation bilaterally, no rales and no wheezes Cardio Rate: regular rate Rhythm: regular rhythm Heart sounds: no murmurs GI Palpation (GI): Soft to palpation and nontender Auscultation: normal bowel sounds General: Yes no CVA tenderness Back/Spine/Pelvis Back: no CVA tenderness Skin Rashes: no rashes Extrem General: Yes no clubbing, cyanosis or edema Results Reviewed Results Reviewed: Laboratory Tests 02/18/24 07:31 WBC 5.3 Hgb 16.2 D Hct 48.9 D Plt Count 194 Sodium 140 Potassium 4.1 Creatinine 0.86 Estimated GFR > 60 Fasting Glucose 77 Calcium 9.3 AST 20 ALT 25 Triglycerides 164 H Cholesterol 172 LDL Cholesterol, Calc 103 H HDL Cholesterol 37 L Vitamin B12 377 25-OH Vitamin D Total 38.9 Folate 14.4 TSH 1.83 Assessment and Plan Assessment & Plan (1) Pure hypercholesterolemia: Code(s): E78.00 - Pure hypercholesterolemia, unspecified Plan: Results of his labs done a couple of weeks ago reviewed and discussed with patient Reinforced low cholesterol diet Continue Atorvastatin 10 mg QD Will recheck his labs and fasting lipids in 4 months for follow up (2) Benign essential hypertension: Code(s): I10 - Essential (primary) hypertension Plan: Reinforced low sodium diet - goal is systolic BP of at least 130 mm or less Continue Lisinopril 5 mg QD (3) Anemia, iron deficiency: Code(s): D50.9 - Iron deficiency anemia, unspecified Qualifiers: Iron deficiency anemia type: inadequate dietary iron intake Qualified Code(s): D50.8 - Other iron deficiency anemias Plan: His CBC was normal on his recent labs Continue Ferrous sulfate 325 mg QD Will recheck his CBC in 4 months for follow up (4) Vitamin D deficiency: Code(s): E55.9 - Vitamin D deficiency, unspecified Plan: Continue Vitamin D3 2000 units QD (5) Obstructive sleep apnea: Code(s): G47.33 - Obstructive sleep apnea (adult) (pediatric) Plan: Follow up with Sleep Medicine as scheduled (6) Obesity (BMI 30-39.9): Code(s): E66.9 - Obesity, unspecified Plan: Reinforced diet/exercise as tolerated/lose weight Plan Follow up in 4 months Orders: Orders Complete Blood Count Auto Diff 4 Months D64.9 - Anemia, unspecified Comprehensive [place]. Panel Fast 4 Months E78.00 - Pure hypercholesterolemia, unspecified Lipid Panel 4 Months E78.00 - Pure hypercholesterolemia, unspecified TSH reflex Free T4 4 Months E78.00 - Pure hypercholesterolemia, unspecified UA CC w/rflx Micro + Cult 4 Months R30.0 - Dysuria Vitamin D 25-OH Total 4 Months E55.9 - Vitamin D deficiency, unspecified Coding Level of Care Code Est Pt Level 4 (81925) Diagnoses Pure hypercholesterolemia E78.00 Benign essential hypertension I10 Iron deficiency anemia secondary to inadequate dietary iron intake D50.8 Iron deficiency anemia type: inadequate dietary iron intake Vitamin D deficiency E55.9 Obstructive sleep apnea G47.33 Obesity (BMI 30-39.9) E66.9
== END 2024-03-02 16:30 | disposition home or self-care (01) ==
PROVIDERS: PCP Internal Medicine; Visit Provider Internal Medicine
DX: E78.00 Pure hypercholesterolemia, unspecified (principal); I10 Essential (primary) hypertension; D50.8 Other iron deficiency anemias; E55.9 Vitamin D deficiency, unspecified; G47.33 Obstructive sleep apnea (adult) (pediatric)
CPT/HCPCS: 99214

== ENCOUNTER 2024-06-30 07:00 | Outpatient (REF) | payer OTHER, SELFPAY ==
[2024-06-30 07:15] LABS: MANUAL DIFF FLAG NO
[2024-06-30 07:41] LABS: Basophils Absolute Auto 0.1 X10*3/uL (0.0-0.2); Basophils Percent Auto 1.1 % (0-2); Eosinophils Absolute Auto 0.2 X10*3/uL (0.0-0.4); Eosinophils Percent Auto 3.2 % (0-4); Hematocrit 45.9 % (42.0-52.0); Hemoglobin 16.1 g/dl (14.0-18.0); Imm Gran Abs Auto 0.02 X10*3/uL (0.00-0.03); Imm Gran Pct Auto 0.4 % (0.0-0.4); Lymphocytes Absolute Auto 1.4 X10*3/uL (1.2-4.9); Lymphocytes Percent Auto 28.8 % (20-40); Mean Corpuscular HGB Conc 35.1 g/dl (31.0-36.0); Mean Corpuscular Hemoglobin 30.8 pg (27.0-33.0); Mean Corpuscular Volume 87.8 fL (80.0-98.0); Mean Platelet Volume 10.3 fL (9.4-12.4); Monocytes Absolute Auto 0.4 X10*3/uL (0.1-1.2); Monocytes Percent Auto 8.2 % (2-11); Neutrophils Absolute Auto 2.8 x10*3/uL (2.0-8.3); Neutrophils Percent Auto 58.3 % (45-73); Platelet Count 183 X10*3/uL (160-400); Red Blood Count 5.23 X10*6/uL (4.60-5.80); Red Cell Distribution Width 13.1 % (11.0-16.0); White Blood Count 4.8 X10*3/uL (4.8-10.8)
[2024-06-30 08:20] LABS: Alanine Aminotransferase 19 U/L (0-40); Albumin Level 4.3 g/dL (3.5-5.0); Alkaline Phosphatase 65 U/L (39-117); Anion Gap 11 (12-20); Aspartate Amino Transferase 19 U/L (5-37); Blood Urea Nitrogen 12 mg/dL (9-16); Calcium 9.8 mg/dL (8.4-10.2); Carbon Dioxide 27 mmol/L (22-29); Chloride 107 mmol/L (96-108); Cholesterol 159 mg/dL (<200); Estimated Glomerular Filt Rate > 60; Glucose Fasting 93 mg/dL (60-99); HDL Cholesterol 32 mg/dL (>40); LDL Cholesterol Calculated 102 mg/dL (<100); Potassium 4.3 mmol/L (3.3-5.1); Sodium 141 mmol/L (135-145); Total Protein 7.1 g/dL (6.5-8.0); Triglycerides 128 mg/dL (<150)
[2024-06-30 08:35] LABS: TSH reflex Free T4 1.48 uIU/mL (0.32-4.0)
[2024-06-30 08:42] LABS: Appearance Urine Clear; Color Urine Yellow; Glucose Urine UA Negative (Negative); Leukocyte Esterase Urine Negative (Negative); Nitrite Urine Negative (Negative); Specific Gravity - Urine 1.015 (1.005-1.025); Urine Blood Negative (Negative); Urine Ketones Negative (Negative); Urine Protein Negative (Neg-Trace)
== END 2024-06-30 07:01 | disposition home or self-care (01) ==
LOC: HO.LAB 07:00
PROVIDERS: PCP Internal Medicine; Visit Provider Internal Medicine
DX: D64.9 Anemia, unspecified (principal); R30.0 Dysuria; E78.00 Pure hypercholesterolemia, unspecified; E55.9 Vitamin D deficiency, unspecified
CPT/HCPCS: 36415; 80053; 80061; 81003; 82306; 84443; 85025

== ENCOUNTER 2024-07-03 15:39 | Outpatient (AMB) | payer OTHER, SELFPAY ==
[2024-07-03 15:41] VITALS: BP 136/84; PULSE 77; O2SAT 95; BMI 34.5
--- NOTE | 2024-07-03 15:41 | A.OFFPC_ITS ---
Vital Signs 07/03/24 15:41 Height 5 ft 9 in Weight 233 lb 8 oz BMI 34.5 BP 136/84 Blood Pressure Location Lt brachial Position Sitting Pulse 77 Pulse Source Pulse Oximeter Pulse Oximetry (%) 95 Oxygen Delivery Method Room Air Intake Visit Reasons: HTN, hyperlipidemia, anemia, Hx of colon cancer Records Management Manager Required: No Accompanied by: Self / Same As Patient Allergies No Known Allergies [No Known Allergies*] Allergy (Verified 07/03/24 16:24) Medication List - Last Reconciled 07/03/24 by Mahamed Matos MD atorvastatin 10 mg PO BEDTIME 90 days cholecalciferol (vitamin D3) 125 mcg PO DAILY ferrous sulfate (FeroSul) 325 mg PO DAILY ketoconazole 2% topical lisinopril 5 mg PO DAILY 90 days multivit with min-folic acid 80 mcg (Centrum Adult 50 Plus) 1 tab PO DAILY sodium,potassium,mag sulfates 17.5-3.13-1.6 gram (Suprep Bowel Prep Kit) DILUTE; drink full amount early evening before AND next morning at least 2 hr before procedure; follow w 960 mL water PO Tobacco use date assessed: 07/03/24 Dental Screening Dental Screen Date: 07/03/24 Did you have a dental visit in the last 12 months?: No Did you have a dental problem in the last 6 months where you did not have access to dental care?: No Was dental information given to patient?: No HPI HTN, hyperlipidemia, anemia, Hx of colon cancer HPI Details Patient comes in today for his follow up visit States that he feels okay He denies any headaches or dizziness Denies any chest pains, no SOB No nausea/vomiting, no abdominal pain No change in bowel habits noted He had his follow up labs done a few days ago - to discuss his results [facility] Medical History History of colon cancer Obstructive sleep apnea Vitamin D deficiency Pure hypercholesterolemia Obesity (BMI 30-39.9) Benign essential hypertension Surgical History Hx of colonoscopy (~09/2018) History of reversal of ileostomy S/P colon resection History of tonsillectomy and adenoidectomy Family History Father No problems noted. Mother Diabetes Hypertension Asthma Social History Housing: House Alcohol intake: current Alcohol intake frequency: former alcohol drinker Alc ohol type: beer Patient Tobacco Use Status: Former Tobacco user e-Cigarette/Vaping Use: Never Used Second Hand Smoke Exposure: Yes service: No Current occupational status: employed Cognitive needs: No Hearing needs: No Vision needs: Yes Questionnaire PHQ-9 Over the last 2 weeks, how often have you been bothered by any of the following problems? 1. Little interest or pleasure in doing things: not at all 2. Feeling down, depressed, or hopeless: not at all 3. Trouble falling or staying asleep, or sleeping too much: not at all 4. Feeling tired or having little energy: not at all 5. Poor appetite or overeating: not at all 6. Feeling bad about yourself - or that you are a failure or have let yourself or your family down: not at all 7. Trouble concentrating on things, such as reading the newspaper or watching television: not at all 8. Moving or speaking so slowly that other people could have noticed. Or the opposite - being so fidgety or restless that you have been moving around a lot more than usual: not at all 9. Thoughts that you would be better off or of hurting yourself in some way: not at all Total score: 0 Depression Screening Interpretation: Negative Depression Screening Done: Yes 41441 - PHQ-9 Billing: Yes Source: Developed by Drs. Mahendra Gonzalez, Nini Martinez, Howard Paredes and colleagues, with an educational festus from [employer]. Thrive Questionnaire Date Thrive assessed: 07/03/24 I am a: Patient What is your living situation today?: I have a steady place to live Within the past 12 months, did the food you bought not last and you didn't have the money to get more?: Never true Within the past 12 months, did you worry whether your food would run out before you got money to buy more?: Never true Do you have trouble paying for medicines?: No Do you have trouble getting transportation to medical appointments?: No Do you have trouble paying your heating and electricity bill?: No Do you have trouble taking care of your child, family member or friend?: No Do you have trouble with day-to-day activities such as bathing, preparing meals, shopping, managing finances, etc.?: No Are you currently unemployed and looking for a job?: No Are you interested in more education?: No Please select the resources that you would like help with: None Currently or been in a relationship where the following occur: No concerns reported THRIVE Score: 0 AUDIT C Alcohol Use Questionnaire (AUDIT-C) 1. How often do you have a drink containing alcohol?: Never 3. How often do you have six or more drinks on one occasion?: Less than monthly Total Score: 1 Score Reviewed/Action Taken: Yes BRITTNI-7 AMB Questionnaire BRITTNI-7 Date BRITTNI - 7 assessed: 07/03/24 Feeling nervous, anxious, or on edge: 0 = Not at all Not being able to stop or control worryin = Not at all Worrying too much about different things: 0 = Not at all Trouble relaxin = Not at all Being so restless that it is hard to sit still: 0 = Not at all Becoming easily annoyed or irritable: 0 = Not at all Feeling afraid as if something awful might happen: 0 = Not at all Total BRITTNI-7 score (0-4 normal; 5-9 mild; 10-14 moderate; 15-21 severe): 0 Source: Developed by Drs. Mahendra Gonzalez, Nini Martinez, Howard Paredes and colleagues, with an educational festus from [employer]. Review of Systems Const Denies chills, Denies fatigue, Denies fever(s) and Denies headache(s) ENT Denies dysphagia, Denies dizziness, Denies otalgia, Denies headache(s), Denies neck pain, Denies odynophagia and Denies sore throat Card Denies chest pain, Denies palpitations and Denies dyspnea Resp Denies chest congestion, Denies cough and Denies dyspnea GI Denies abdominal pain, Denies constipation, Denies dysphagia, Denies heartburn, Denies diarrhea, Denies nausea, Denies odynophagia and Denies vomiting Denies difficulty urinating, Denies dysuria, Denies nocturia and Denies urinary frequency Musc Denies back pain and Denies neck pain Skin/Breast Denies rash Neuro Denies dizziness and Denies headache(s) Endo Denies fatigue and Denies palpitations Physical exam (Primary Care) Vital Signs: Last Vital Signs Pulse 77 07/03/24 15:41 BP 136/84 07/03/24 15:41 Pulse Ox 95 07/03/24 15:41 Oxygen Delivery Method Room Air 07/03/24 15:41 BMI result Body Mass Index 34.5 Tobacco/Smoking Status: Tobacco use Status Tobacco use date assessed 07/03/24 07/03/24 15:47 Patient Tobacco Use Status Former Tobacco user 07/03/24 15:47 e-Cigarette/Vaping Use Never Used 07/03/24 15:47 PHQ-9: PHQ-9 Score PHQ-9: Total score 0 07/03/24 16:25 Depression Screening Interpretation: Negative Thrive Assessment: Date of Thrive Assessment Date Thrive assessed 07/03/24 07/03/24 15:47 Currently or been in a relationship where the following occur: No concerns reported Const General: no acute distress and alert HENMT Ears: TM's normal bilaterally and EAC's normal Throat: Yes posterior oropharynx normal and Yes tonsils normal (no TP congestion) Neck Neck: Yes no lymphadenopathy and Yes supple Thyroid: Thyroid normal Resp Auscultation: clear to auscultation bilaterally, no rales and no wheezes Cardio Rate: regular rate Rhythm: regular rhythm Heart sounds: no murmurs GI Palpation (GI): Soft to palpation and nontender Auscultation: normal bowel sounds General: Yes no CVA tenderness Back/Spine/Pelvis Back: no CVA tenderness Skin Rashes: no rashes Extrem General: Yes no clubbing, cyanosis or edema Office Procedures Flu Questionnaire Does the patient have a severe egg allergy?: No Immunizations Fluarix Triv [id number] (PF) 45 mcg (15 mcg x 3)/0.5 mL IM syringe Performing Provider: Mahamed Matos MD [place] [facility] [facility] [place] [facility] Documented (not given) by: LARA Gonzalez on 07/03/24 15:48 Reason Not Given: Patient Refused Results Reviewed Results Reviewed: Laboratory Tests 06/30/24 06/30/24 07:08 07:13 WBC 4.8 Hgb 16.1 Hct 45.9 Plt Count 183 Sodium 141 Potassium 4.3 Estimated GFR > 60 Fasting Glucose 93 Calcium 9.8 AST 19 ALT 19 Triglycerides 128 Cholesterol 159 LDL Cholesterol, Calc 102 H HDL Cholesterol 32 L 25-OH Vitamin D Total 56.0 TSH 1.48 Ur Specific [place] 1.015 Urine Protein Negative Urine Glucose (UA) Negative Urine Blood Negative Urine Nitrite Negative Ur Leukocyte Esterase Negative Coding Level of Care Code Est Pt Level 4 (83828) Diagnoses Benign essential hypertension I10 Pure hypercholesterolemia E78.00 Iron deficiency anemia secondary to inadequate dietary iron intake D50.8 Iron deficiency anemia type: inadequate dietary iron intake Vitamin D deficiency E55.9 Obstructive sleep apnea G47.33 Obesity (BMI 30-39.9) E66.9 Assessment & Plan Assessment & Plan (1) Benign essential hypertension: Code(s): I10 - Essential (primary) hypertension Category: Medical Plan: Reinforced low sodium diet - goal is systolic BP of at least 130 mm or less Continue Lisinopril 5 mg QD (2) Pure hypercholesterolemia: Code(s): E78.00 - Pure hypercholesterolemia, unspecified Category: Medical Plan: Results of his labs done a few days ago reviewed and discussed with patient Reinforced low cholesterol diet Continue Atorvastatin 10 mg QD Will recheck his labs and fasting lipids in 4 months for follow up (3) Anemia, iron deficiency: Code(s): D50.9 - Iron deficiency anemia, unspecified Category: Medical Qualifiers: Iron deficiency anemia type: inadequate dietary iron intake Qualified Code(s): D50.8 - Other iron deficiency anemias Plan: Corrected - patient's CBC remained normal on his recent labs Continue Ferrous sulfate 325 mg QD Will recheck his CBC in 4 months for follow up (4) Vitamin D deficiency: Code(s): E55.9 - Vitamin D deficiency, unspecified Category: Medical Plan: Continue Vitamin D3 2000 units QD (5) Obstructive sleep apnea: Code(s): G47.33 - Obstructive sleep apnea (adult) (pediatric) Category: Medical Plan: Follow up with Sleep Medicine as scheduled (6) Obesity (BMI 30-39.9): Code(s): E66.9 - Obesity, unspecified Category: Medical Plan: Reinforced diet/exercise as tolerated/lose weight Plan Follow up in 4 months Orders: Orders Influenza [id number] Immunization 07/03/24 Z23 - Encounter for immunization Comprehensive [place]. Panel Fast 4 Months E78.00 - Pure hypercholesterolemia, unspecified Complete Blood Count Auto Diff 4 Months D64.9 - Anemia, unspecified Lipid Panel 4 Months E78.00 - Pure hypercholesterolemia, unspecified
== END 2024-07-03 16:29 | disposition home or self-care (01) ==
PROVIDERS: PCP Internal Medicine; Visit Provider Internal Medicine
DX: I10 Essential (primary) hypertension (principal); E66.9 Obesity, unspecified; Z68.34 Body mass index [BMI] 34.0-34.9, adult; E78.00 Pure hypercholesterolemia, unspecified; D50.8 Other iron deficiency anemias; E55.9 Vitamin D deficiency, unspecified; G47.33 Obstructive sleep apnea (adult) (pediatric)

== ENCOUNTER → 2024-07-03 15:39 | Outpatient (BNVA) | payer OTHER, SELFPAY | PROVIDERS: PCP Internal Medicine; Visit Provider Internal Medicine | DX: I10 Essential (primary) hypertension (principal); E78.00 Pure hypercholesterolemia, unspecified; D50.8 Other iron deficiency anemias; E55.9 Vitamin D deficiency, unspecified; G47.33 Obstructive sleep apnea (adult) (pediatric); E66.9 Obesity, unspecified; Z68.34 Body mass index [BMI] 34.0-34.9, adult; Z79.899 Other long term (current) drug therapy; Z28.21 Immunization not carried out because of patient refusal | CPT/HCPCS: 90471; 96127 ==

== ENCOUNTER 2024-12-24 06:01 | Outpatient (REF) | payer OTHER, SELFPAY ==
[2024-12-24 06:14] LABS: MANUAL DIFF FLAG NO
[2024-12-24 07:29] LABS: Basophils Absolute Auto 0.1 X10*3/uL (0.0-0.2); Basophils Percent Auto 0.8 % (0-2); Eosinophils Absolute Auto 0.2 X10*3/uL (0.0-0.4); Eosinophils Percent Auto 3.1 % (0-4); Hematocrit 48.8 % (42.0-52.0); Hemoglobin 16.4 g/dl (14.0-18.0); Imm Gran Abs Auto 0.04 X10*3/uL (0.00-0.03); Imm Gran Pct Auto 0.6 % (0.0-0.4); Lymphocytes Absolute Auto 1.7 X10*3/uL (1.2-4.9); Lymphocytes Percent Auto 26.6 % (20-40); Mean Corpuscular HGB Conc 33.6 g/dl (31.0-36.0); Mean Corpuscular Hemoglobin 29.9 pg (27.0-33.0); Mean Corpuscular Volume 88.9 fL (80.0-98.0); Mean Platelet Volume 10.6 fL (9.4-12.4); Monocytes Absolute Auto 0.5 X10*3/uL (0.1-1.2); Monocytes Percent Auto 7.7 % (2-11); Neutrophils Absolute Auto 3.9 x10*3/uL (2.0-8.3); Neutrophils Percent Auto 61.2 % (45-73); Platelet Count 198 X10*3/uL (160-400); Red Blood Count 5.49 X10*6/uL (4.60-5.80); Red Cell Distribution Width 13.2 % (11.0-16.0); White Blood Count 6.4 X10*3/uL (4.8-10.8)
[2024-12-24 07:49] LABS: Alanine Aminotransferase 30 U/L (0-40); Albumin Level 4.2 g/dL (3.5-5.0); Alkaline Phosphatase 56 U/L (39-117); Anion Gap 10 (12-20); Aspartate Amino Transferase 25 U/L (5-37); Bilirubin Total 0.7 mg/dL (0.0-1.0); Blood Urea Nitrogen 12 mg/dL (9-16); Calcium 9.1 mg/dL (8.4-10.2); Carbon Dioxide 26 mmol/L (22-29); Chloride 109 mmol/L (96-108); Cholesterol 204 mg/dL (<200); Estimated Glomerular Filt Rate > 60; Glucose Fasting 87 mg/dL (60-99); HDL Cholesterol 39 mg/dL (>40); LDL Cholesterol Calculated 135 mg/dL (<100); Potassium 4.3 mmol/L (3.3-5.1); Sodium 141 mmol/L (135-145); Total Protein 7.2 g/dL (6.5-8.0); Triglycerides 152 mg/dL (<150)
== END 2024-12-24 06:02 | disposition home or self-care (01) ==
LOC: HO.LAB 06:01
PROVIDERS: PCP Internal Medicine; Visit Provider Internal Medicine
DX: D64.9 Anemia, unspecified (principal); E78.00 Pure hypercholesterolemia, unspecified
CPT/HCPCS: 36415; 80053; 80061; 85025

== ENCOUNTER 2025-01-04 14:54 | Outpatient (AMB) | payer OTHER, SELFPAY ==
--- NOTE | 2025-01-04 14:58 | MHC.PC.OV ---
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: No Accompanied by: Self / Same As Patient Allergies No Known Allergies [No Known Allergies*] Allergy (Verified 01/04/25 15:24) Medication List - Last Reconciled 01/04/25 by Mahamed Matos MD atorvastatin 10 mg PO BEDTIME 90 days cholecalciferol (vitamin D3) 125 mcg PO DAILY ferrous sulfate (FeroSul) 325 mg PO DAILY ketoconazole 2% topical lisinopril 5 mg PO DAILY 90 days multivit with min-folic acid 80 mcg (Centrum Adult 50 Plus) 1 tab PO DAILY sodium,potassium,mag sulfates 17.5-3.13-1.6 gram (Suprep Bowel Prep Kit) DILUTE; drink full amount early evening before AND next morning at least 2 hr before procedure; follow w 960 mL water PO Tobacco use date assessed: 01/04/25 Dental Screening Dental Screen Date: 01/04/25 Did you have a dental visit in the last 12 months?: Yes Did you have a dental problem in the last 6 months where you did not have access to dental care?: No Was dental information given to patient?: Patient has dentist HPI 4 month f/u HPI Details Patient comes in today for his follow up visit for his HTN and hyperlipidemia States that he feels okay He denies any headaches or dizziness Denies any chest pains, no SOB No nausea/vomiting, no abdominal pain No change in bowel habits noted He had his follow up labs done last week - to discuss his results [facility] Medical History History of colon cancer Obstructive sleep apnea Vitamin D deficiency Pure hypercholesterolemia Obesity (BMI 30-39.9) Benign essential hypertension Surgical History Hx of colonoscopy (~09/2018) History of reversal of ileostomy S/P colon resection History of tonsillectomy and adenoidectomy Family History Father No problems noted. Mother Diabetes Hypertension Asthma Social History Housing: House Alcohol intake: current Alcohol intake frequency: former alcohol drinker Alcohol type: beer Patient Tobacco Use Status: Former Tobacco user e-Cigarette/Vaping Use: Never Used Second Hand Smoke Exposure: Yes service: No Current occupational status: employed Cognitive needs: No Hearing needs: No Vision needs: Yes (Glasses) Questionnaire PHQ-9 Over the last 2 weeks, how often have you been bothered by any of the following problems? 1. Little interest or pleasure in doing things: not at all 2. Feeling down, depressed, or hopeless: not at all 3. Trouble falling or staying asleep, or sleeping too much: not at all 4. Feeling tired or having little energy: not at all 5. Poor appetite or overeating: not at all 6. Feeling bad about yourself - or that you are a failure or have let yourself or your family down: not at all 7. Trouble concentrating on things, such as reading the newspaper or watching television: not at all 8. Moving or speaking so slowly that other people could have noticed. Or the opposite - being so fidgety or restless that you have been moving around a lot more than usual: not at all 9. Thoughts that you would be better off or of hurting yourself in some way: not at all Total score: 0 Depression Screening Interpretation: Negative Depression Screening Done: Yes 57307 - PHQ-9 Billing: Yes Source: Developed by Drs. Mahendra Gonzalez, Nini Martinez, Howard Paredes and colleagues, with an educational festus from [employer]. Thrive Questionnaire Date Thrive assessed: 01/04/25 I am a: Patient What is your living situation today?: I have a steady place to live Within the past 12 months, did the food you bought not last and you didn't have the money to get more?: Never true Within the past 12 months, did you worry whether your food would run out before you got money to buy more?: Never true Do you have trouble paying for medicines?: No Do you have trouble getting transportation to medical appointments?: No Do you have trouble paying your heating and electricity bill?: No Do you have trouble taking care of your child, family member or friend?: No Do you have trouble with day-to-day activities such as bathing, preparing meals, shopping, managing finances, etc.?: No Are you currently unemployed and looking for a job?: No Are you interested in more education?: No Please select the resources that you would like help with: None Currently or been in a relationship where the following occur: No concerns reported THRIVE Score: 0 AUDIT C Alcohol Use Questionnaire (AUDIT-C) 1. How often do you have a drink containing alcohol?: Never 3. How often do you have six or more drinks on one occasion?: Less than monthly Total Score: 1 Score Reviewed/Action Taken: Yes BRITTNI-7 AMB Questionnaire BRITTNI-7 Date BRITTNI - 7 assessed: 01/04/25 Feeling nervous, anxious, or on edge: 0 = Not at all Not being able to stop or control worryin = Not at all Worrying too much about different things: 0 = Not at all Trouble relaxin = Not at all Being so restless that it is hard to sit still: 0 = Not at all Becoming easily annoyed or irritable: 0 = Not at all Feeling afraid as if something awful might happen: 0 = Not at all Total BRITTNI-7 score (0-4 normal; 5-9 mild; 10-14 moderate; 15-21 severe): 0 Source: Developed by Drs. Mahendra Gonzalez, Nini Martinez, Howard Paredes and colleagues, with an educational festus from [employer]. Review of Systems Const Denies chills, Denies fatigue, Denies fever(s) and Denies headache(s) ENT Denies dysphagia, Denies dizziness, Denies otalgia, Denies headache(s), Denies neck pain, Denies odynophagia and Denies sore throat Card Denies chest pain, Denies palpitations and Denies dyspnea Resp Denies chest congestion, Denies cough and Denies dyspnea GI Denies abdominal pain, Denies constipation, Denies dysphagia, Denies heartburn, Denies diarrhea, Denies nausea, Denies odynophagia and Denies vomiting Denies difficulty urinating, Denies dysuria, Denies nocturia and Denies urinary frequency Musc Denies back pain and Denies neck pain Skin/Breast Denies rash Neuro Denies dizziness and Denies headache(s) Endo Denies fatigue and Denies palpitations Physical exam (Primary Care) Vital Signs: Last Vital Signs Temp 97.3 F 01/04/25 14:59 Pulse 72 01/04/25 14:59 BP 110/70 01/04/25 14:59 Pulse Ox 96 01/04/25 14:59 Oxygen Delivery Method Room Air 01/04/25 14:59 BMI result Body Mass Index 34.3 Tobacco/Smoking Status: Tobacco use Status Tobacco use date assessed 01/04/25 01/04/25 15:07 Patient Tobacco Use Status Former Tobacco user 01/04/25 15:07 e-Cigarette/Vaping Use Never Used 01/04/25 15:07 PHQ-9: PHQ-9 Score PHQ-9: Total score 0 01/04/25 15:30 Depression Screening Interpretation: Negative Thrive Assessment: Date of Thrive Assessment Date Thrive assessed 01/04/25 01/04/25 15:07 Currently or been in a relationship where the following occur: No concerns reported Const General: no acute distress and alert HENMT Ears: TM's normal bilaterally and EAC's normal Throat: Yes posterior oropharynx normal and Yes tonsils normal (no TP congestion) Neck Neck: Yes supple and No lymphadenopathy Thyroid: Thyroid normal Resp Auscultation: clear to auscultation bilaterally, no rales and no wheezes Cardio Rate: regular rate Rhythm: regular rhythm Heart sounds: no murmurs GI Palpation (GI): Soft to palpation and nontender Auscultation: normal bowel sounds General: Yes no CVA tenderness Back/Spine/Pelvis Back: no CVA tenderness Thoracic/Lumbar Spine: No lumbar spinal tenderness Skin Rashes: no rashes Extrem General: Yes no clubbing, cyanosis or edema Results Reviewed Results Reviewed: Laboratory Tests 12/24/24 06:12 WBC 6.4 Hgb 16.4 Hct 48.8 Plt Count 198 Sodium 141 Potassium 4.3 Creatinine 0.89 Estimated GFR > 60 Fasting Glucose 87 Calcium 9.1 D AST 25 ALT 30 Triglycerides 152 H Cholesterol 204 H LDL Cholesterol, Calc 135 H HDL Cholesterol 39 L Coding Level of Care Code Est Pt Level 4 (34359) Diagnoses Pure hypercholesterolemia E78.00 Benign essential hypertension I10 Iron deficiency anemia secondary to inadequate dietary iron intake D50.8 Iron deficiency anemia type: inadequate dietary iron intake Vitamin D deficiency E55.9 Obstructive sleep apnea G47.33 Obesity (BMI 30-39.9) E66.9 Additional Codes PHQ-9 - 87805 - PHQ-9 Billing: Yes ([id number]) Assessment & Plan Assessment & Plan (1) Pure hypercholesterolemia: Code(s): E78.00 - Pure hypercholesterolemia, unspecified Category: Medical Plan: Results of his labs done last week reviewed and discussed with patient Reinforced low cholesterol diet Continue Atorvastatin 10 mg QD Will recheck his labs and fasting lipids in 4 months for follow up (2) Benign essential hypertension: Code(s): I10 - Essential (primary) hypertension Category: Medical Plan: Reinforced low sodium diet - goal is systolic BP of 120 mm or less Continue Lisinopril 5 mg QD Patient is reminded to continue monitoring his blood pressure regularly (3) Anemia, iron deficiency: Code(s): D50.9 - Iron deficiency anemia, unspecified Category: Medical Qualifiers: Iron deficiency anemia type: inadequate dietary iron intake Qualified Code(s): D50.8 - Other iron deficiency anemias Plan: Corrected - patient's CBC remained normal on his recent labs Continue Ferrous sulfate 325 mg QD Will continue to monitor his CBC regularly (4) Vitamin D deficiency: Code(s): E55.9 - Vitamin D deficiency, unspecified Category: Medical Plan: Continue Vitamin D3 5000 units QD (5) Obstructive sleep apnea: Code(s): G47.33 - Obstructive sleep apnea (adult) (pediatric) Category: Medical Plan: Follow up with Sleep Medicine as scheduled (6) Obesity (BMI 30-39.9): Code(s): E66.9 - Obesity, unspecified Category: Medical Plan: Reinforced diet/exercise as tolerated/lose weight Plan Follow up in 4 months Orders: Orders Lipid Panel 4 Months E78.00 - Pure hypercholesterolemia, unspecified UA CC w/rflx Micro + Cult 4 Months I10 - Essential (primary) hypertension, R30.0 - Dysuria Complete Blood Count Auto Diff 4 Months D64.9 - Anemia, unspecified Comprehensive [place]. Panel Fast 4 Months E78.00 - Pure hypercholesterolemia, unspecified
[2025-01-04 14:59] VITALS: BP 110/70; PULSE 72; TEMP 36.3; O2SAT 96; BMI 34.3
== END 2025-01-04 15:35 | disposition home or self-care (01) ==
LOC: HO.HMCH 14:54
PROVIDERS: PCP Internal Medicine; Visit Provider Internal Medicine
DX: E78.00 Pure hypercholesterolemia, unspecified (principal); I10 Essential (primary) hypertension; E66.9 Obesity, unspecified; Z68.34 Body mass index [BMI] 34.0-34.9, adult; D50.8 Other iron deficiency anemias; E55.9 Vitamin D deficiency, unspecified; G47.33 Obstructive sleep apnea (adult) (pediatric)

== ENCOUNTER → 2025-01-04 14:54 | Outpatient (BNVA) | payer OTHER, SELFPAY | PROVIDERS: PCP Internal Medicine; Visit Provider Internal Medicine | DX: E78.00 Pure hypercholesterolemia, unspecified (principal); I10 Essential (primary) hypertension; D50.8 Other iron deficiency anemias; E55.9 Vitamin D deficiency, unspecified; G47.33 Obstructive sleep apnea (adult) (pediatric); E66.9 Obesity, unspecified; Z68.34 Body mass index [BMI] 34.0-34.9, adult; Z79.899 Other long term (current) drug therapy | CPT/HCPCS: 96127 ==

== ENCOUNTER 2025-05-06 06:04 | Outpatient (REF) | payer OTHER, SELFPAY ==
[2025-05-06 06:28] LABS: MANUAL DIFF FLAG NO
[2025-05-06 07:50] LABS: Hematocrit 45.7 % (42.0-52.0); Hemoglobin 15.9 g/dl (14.0-18.0); Imm Gran Abs Auto 0.05 X10*3/uL (0.00-0.03); Imm Gran Pct Auto 0.8 % (0.0-0.4); Lymphocytes Absolute Auto 1.5 X10*3/uL (1.2-4.9); Mean Corpuscular HGB Conc 34.8 g/dl (31.0-36.0); Mean Corpuscular Hemoglobin 30.6 pg (27.0-33.0); Mean Corpuscular Volume 87.9 fL (80.0-98.0); NRBC Abs Auto 0.000 X10*3/uL (0.0-0.012); NRBC Pct Auto 0.0 /100WBC (0.0-0.2); Platelet Count 161 X10*3/uL (160-400); Red Blood Count 5.20 X10*6/uL (4.60-5.80); White Blood Count 5.9 X10*3/uL (4.8-10.8)
[2025-05-06 08:21] LABS: Alanine Aminotransferase 40 U/L (0-40); Albumin Level 4.3 g/dL (3.5-5.0); Alkaline Phosphatase 58 U/L (39-117); Anion Gap 10 (12-20); Aspartate Amino Transferase 28 U/L (5-37); Blood Urea Nitrogen 13 mg/dL (9-16); Calcium 9.0 mg/dL (8.4-10.2); Carbon Dioxide 26 mmol/L (22-29); Chloride 109 mmol/L (96-108); Cholesterol 161 mg/dL (<200); Estimated Glomerular Filt Rate > 60; HDL Cholesterol 37 mg/dL (>40); Potassium 4.0 mmol/L (3.3-5.1); Sodium 141 mmol/L (135-145); Total Protein 6.7 g/dL (6.5-8.0); Triglycerides 123 mg/dL (<150)
[2025-05-06 08:24] LABS: Appearance Urine Clear; Glucose Urine UA Negative (Negative); PH 5.5 (5.0-9.0); Specific Gravity - Urine 1.015 (1.005-1.025)
== END 2025-05-06 06:05 | disposition home or self-care (01) ==
LOC: HO.LAB 06:04
PROVIDERS: PCP Internal Medicine; Visit Provider Internal Medicine
DX: R30.0 Dysuria (principal); D64.9 Anemia, unspecified; E78.00 Pure hypercholesterolemia, unspecified; I10 Essential (primary) hypertension
CPT/HCPCS: 36415; 80053; 80061; 81003; 85025

== ENCOUNTER 2025-05-10 14:30 | Outpatient (AMB) | payer OTHER, SELFPAY ==
--- NOTE | 2025-05-10 14:38 | A.OFFPC_ITS ---
Vital Signs 05/10/25 14:42 Height 5 ft 9 in Weight 231 lb 6 oz BMI 34.2 BP 120/80 Blood Pressure Location Lt brachial Position Sitting Pulse 74 Pulse Source Pulse Oximeter Temp 97.3 F Temp Source Temporal Artery Scan Pulse Oximetry (%) 94 Oxygen Delivery Method Room Air Intake Visit Reasons: hyperlipidemia Intake Note: Patient is here to follow up on HLD. 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: Not Required per policy Accompanied by: Self / Same As Patient Allergies No Known Allergies (No Known Allergies*) Allergy (Verified 05/10/25 15:06) Medication List - Last Reconciled 05/10/25 by Mahamed Matos MD atorvastatin 10 mg PO BEDTIME 90 days cholecalciferol (vitamin D3) 125 mcg PO DAILY ferrous sulfate (FeroSul) 325 mg PO DAILY ketoconazole 2% topical lisinopril 5 mg PO DAILY 90 days multivit with min-folic acid 80 mcg (Centrum Adult 50 Plus) 1 tab PO DAILY Tobacco use date assessed: 05/10/25 Dental Screening Dental Screen Date: 01/04/25 HPI hyperlipidemia HPI Details Patient comes in today for his follow up visit States that he feels okay He denies any headaches or dizziness Denies any chest pains, no SOB No nausea/vomiting, no abdominal pain No change in bowel habits noted He had his follow up labs done a few days ago- to discuss his results [facility] Medical History History of colon cancer Obstructive sleep apnea Vitamin D deficiency Pure hypercholesterolemia Obesity (BMI 30-39.9) Benign essential hypertension Surgical History Hx of colonoscopy (~09/2018) History of reversal of ileostomy S/P colon resection History of tonsillectomy and adenoidectomy Family History Father No problems noted. Mother Diabetes Hypertension Asthma Social History Housing: House Alcohol intake: current Alcohol intake frequency: former alcohol drinker Alcohol type: beer Patient Tobacco Use Status: Former Tobacco user e-Cigarette/Vaping Use: Never Used Second Hand Smoke Exposure: Yes service: No Current occupational status: employed Cognitive needs: No Hearing needs: No Vision needs: Yes (Glasses) Questionnaire PHQ-9 Over the last 2 weeks, how often have you been bothered by any of the following problems? 1. Little interest or pleasure in doing things: not at all 2. Feeling down, depressed, or hopeless: not at all 3. Trouble falling or staying asleep, or sleeping too much: not at all 4. Feeling tired or having little energy: not at all 5. Poor appetite or overeating: not at all 6. Feeling bad about yourself - or that you are a failure or have let yourself or your family down: not at all 7. Trouble concentrating on things, such as reading the newspaper or watching television: not at all 8. Moving or speaking so slowly that other people could have noticed. Or the opposite - being so fidgety or restless that you have been moving around a lot more than usual: not at all 9. Thoughts that you would be better off or of hurting yourself in some way: not at all Total score: 0 Depression Screening Interpretation: Negative Depression Screening Done: Yes 17195 - PHQ-9 Billing: Yes Source: Developed by Drs. Mahendra Gonzalez, Nini Martinez, Howard Paredes and colleagues, with an educational festus from [employer]. Thrive Questionnaire Date Thrive assessed: 05/07/25 I am a: Patient What is your living situation today?: I choose not to answer this question Within the past 12 months, did the food you bought not last and you didn't have the money to get more?: I choose not to answer this question Within the past 12 months, did you worry whether your food would run out before you got money to buy more?: Never true Do you have trouble paying for medicines?: No Do you have trouble getting transportation to medical appointments?: No Do you have trouble paying your heating and electricity bill?: No Do you have trouble taking care of your child, family member or friend?: No Do you have trouble with day-to-day activities such as bathing, preparing meals, shopping, managing finances, etc.?: No Are you currently unemployed and looking for a job?: No Are you interested in more education?: I choose not to answer this question Please select the resources that you would like help with: None Currently or been in a relationship where the following occur: I choose not to answer THRIVE Score: 0 AUDIT C Alcohol Use Questionnaire (AUDIT-C) 1. How often do you have a drink containing alcohol?: Never Total Score: 0 Score Reviewed/Action Taken: Yes BRITTNI-7 AMB Questionnaire BRITTNI-7 Date BRITTNI - 7 assessed: 01/04/25 Feeling nervous, anxious, or on edge: 0 = Not at all Not being able to stop or control worryin = Not at all Worrying too much about different things: 0 = Not at all Trouble relaxin = Not at all Being so restless that it is hard to sit still: 0 = Not at all Becoming easily annoyed or irritable: 0 = Not at all Feeling afraid as if something awful might happen: 0 = Not at all Total BRITTNI-7 score (0-4 normal; 5-9 mild; 10-14 moderate; 15-21 severe): 0 Source: Developed by Drs. Mahendra Gonzalez, Nini Martinez, Howard Paredes and colleagues, with an educational festus from [employer]. Review of Systems Const Denies chills, Denies fatigue, Denies fever(s) and Denies headache(s) ENT Denies dysphagia, Denies dizziness, Denies otalgia, Denies headache(s), Denies neck pain, Denies odynophagia and Denies sore throat Card Denies chest pain, Denies palpitations and Denies dyspnea Resp Denies chest congestion, Denies cough and Denies dyspnea GI Denies abdominal pain, Denies constipation, Denies dysphagia, Denies heartburn, Denies diarrhea, Denies nausea, Denies odynophagia and Denies vomiting Denies difficulty urinating, Denies dysuria, Denies nocturia and Denies urinary frequency Musc Denies back pain and Denies neck pain Skin/Breast Denies rash Neuro Denies dizziness and Denies headache(s) Endo Denies fatigue and Denies palpitations Physical exam (Primary Care) Vital Signs: Last Vital Signs Temp 97.3 F 05/10/25 14:42 Pulse 74 05/10/25 14:42 BP 120/80 05/10/25 14:42 Pulse Ox 94 05/10/25 14:42 Oxygen Delivery Method Room Air 05/10/25 14:42 BMI result Body Mass Index 34.2 Tobacco/Smoking Status: Tobacco use Status Tobacco use date assessed 05/10/25 05/10/25 14:46 Patient Tobacco Use Status Former Tobacco user 05/10/25 14:39 e-Cigarette/Vaping Use Never Used 05/10/25 14:39 PHQ-9: PHQ-9 Score PHQ-9: Total score 0 05/10/25 14:46 Depression Screening Interpretation: Negative Thrive Assessment: Date of Thrive Assessment Date Thrive assessed 05/07/25 05/10/25 14:39 Currently or been in a relationship where the following occur: I choose not to answer Const General: no acute distress and alert HENMT Ears: TM's normal bilaterally and EAC's normal Throat: Yes posterior oropharynx normal and Yes tonsils normal (no TP congestion) Neck Neck: Yes supple and No lymphadenopathy Thyroid: Thyroid normal Resp Auscultation: clear to auscultation bilaterally, no rales and no wheezes Cardio Rate: regular rate Rhythm: regular rhythm Heart sounds: no murmurs GI Palpation (GI): Soft to palpation and nontender Auscultation: normal bowel sounds General: Yes no CVA tenderness Back/Spine/Pelvis Back: no CVA tenderness Thoracic/Lumbar Spine: No lumbar spinal tenderness Skin Rashes: no rashes Extrem General: Yes no clubbing, cyanosis or edema Results Reviewed Results Reviewed: Laboratory Tests 05/06/25 05/06/25 06:27 06:28 WBC 5.9 Hgb 15.9 Hct 45.7 Plt Count 161 Sodium 141 Potassium 4.0 Creatinine 0.90 Estimated GFR > 60 Fasting Glucose 93 Calcium 9.0 AST 28 ALT 40 Triglycerides 123 Cholesterol 161 LDL Cholesterol, Calc 100 H HDL Cholesterol 37 L Ur Specific [place] 1.015 Urine Protein Negative Urine Glucose (UA) Negative Urine Blood Negative Urine Nitrite Negative Ur Leukocyte Esterase Negative Coding Level of Care Code Est Pt Level 4 (20518) Diagnoses Pure hypercholesterolemia E78.00 Benign essential hypertension I10 Iron deficiency anemia secondary to inadequate dietary iron intake D50.8 Iron deficiency anemia type: inadequate dietary iron intake Vitamin D deficiency E55.9 Obstructive sleep apnea G47.33 Obesity (BMI 30-39.9) E66.9 Additional Codes PHQ-9 - 41049 - PHQ-9 Billing: Yes ([id number]) Assessment & Plan Assessment & Plan (1) Pure hypercholesterolemia: Code(s): E78.00 - Pure hypercholesterolemia, unspecified Category: Medical Plan: Results of his labs done last week reviewed and discussed with patient - he is advised that his cholesterol numbers have all improved significantly from previous Reinforced low cholesterol diet Continue Atorvastatin 10 mg QD Will recheck his labs and fasting lipids in 4 months for follow up (2) Benign essential hypertension: Code(s): I10 - Essential (primary) hypertension Category: Medical Plan: Reinforced low sodium diet - goal is systolic BP of 120 mm or less Continue Lisinopril 5 mg QD Patient is reminded to continue monitoring his blood pressure regularly (3) Anemia, iron deficiency: Code(s): D50.9 - Iron deficiency anemia, unspecified Category: Medical Qualifiers: Iron deficiency anemia type: inadequate dietary iron intake Qualified Code(s): D50.8 - Other iron deficiency anemias Plan: Corrected - patient's CBC remained normal on his recent labs Continue Ferrous sulfate 325 mg QD Will continue to monitor his CBC regularly (4) Vitamin D deficiency: Code(s): E55.9 - Vitamin D deficiency, unspecified Category: Medical Plan: Continue Vitamin D3 5000 units QD (5) Obstructive sleep apnea: Code(s): G47.33 - Obstructive sleep apnea (adult) (pediatric) Category: Medical Plan: Follow up with Sleep Medicine as scheduled (6) Obesity (BMI 30-39.9): Code(s): E66.9 - Obesity, unspecified Category: Medical Plan: Reinforced diet/exercise as tolerated/lose weight Plan Follow up in 4 months Orders: Orders Complete Blood Count Auto Diff 4 Months D64.9 - Anemia, unspecified Comprehensive [place]. Panel Fast 4 Months E78.00 - Pure hypercholesterolemia, unspecified Lipid Panel 4 Months E78.00 - Pure hypercholesterolemia, unspecified
[2025-05-10 14:42] VITALS: BP 120/80; PULSE 74; TEMP 36.3; O2SAT 94; BMI 34.2
== END 2025-05-10 15:18 | disposition home or self-care (01) ==
LOC: HO.HMCH 14:30
PROVIDERS: PCP Internal Medicine; Visit Provider Internal Medicine
DX: E78.00 Pure hypercholesterolemia, unspecified (principal); E66.9 Obesity, unspecified; Z68.34 Body mass index [BMI] 34.0-34.9, adult; I10 Essential (primary) hypertension; D50.8 Other iron deficiency anemias; E55.9 Vitamin D deficiency, unspecified; G47.33 Obstructive sleep apnea (adult) (pediatric)

== ENCOUNTER → 2025-05-10 14:30 | Outpatient (BNVA) | payer OTHER, SELFPAY | PROVIDERS: PCP Internal Medicine; Visit Provider Internal Medicine | DX: I10 Essential (primary) hypertension (principal); E78.00 Pure hypercholesterolemia, unspecified; D50.8 Other iron deficiency anemias; E55.9 Vitamin D deficiency, unspecified; G47.33 Obstructive sleep apnea (adult) (pediatric); E66.9 Obesity, unspecified; Z68.34 Body mass index [BMI] 34.0-34.9, adult | CPT/HCPCS: 96127 ==

== ENCOUNTER 2025-09-09 16:22 | Outpatient (AMB) | payer OTHER, SELFPAY ==
[2025-09-09 16:24] VITALS: BP 126/80; PULSE 73; TEMP 36.2; O2SAT 98; BMI 35.7
--- NOTE | 2025-09-09 16:24 | A.OFFPC_ITS ---
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 Accompanied by: Self / Same As Patient Allergies No Known Allergies (No Known Allergies*) Allergy (Verified 09/09/25 17:12) Medication List - Last Reconciled 09/09/25 by Mahamed Matos MD atorvastatin 10 mg PO BEDTIME 90 days cholecalciferol (vitamin D3) 125 mcg PO DAILY ferrous sulfate (FeroSul) 325 mg PO DAILY ketoconazole 2% topical lisinopril 5 mg PO DAILY 90 days multivit with min-folic acid 80 mcg (Centrum Adult 50 Plus) 1 tab PO DAILY Tobacco use date assessed: 09/09/25 Fall risk assessment: No Falls in past year Last assessed Fall Risk: 09/09/25 Dental Screening Dental Screen Date: 09/09/25 Did you have a dental visit in the last 12 months?: Yes Did you have a dental problem in the last 6 months where you did not have access to dental care?: No HPI [facility] f/u HPI Details Patient comes in today for his follow-up visit States that he feels okay He denies any headaches or dizziness Denies any chest pains, no shortness of breath No nausea/vomiting, no abdominal pain No change in bowel habits noted He was not able to get his follow-up labs done prior to his appointment today - states that he will try to go and get these done [facility] Medical History History of colon cancer Obstructive sleep apnea Vitamin D deficiency Pure hypercholesterolemia Obesity (BMI 30-39.9) Benign essential hypertension Surgical History Hx of colonoscopy (~09/2018) History of reversal of ileostomy S/P colon resection History of tonsillectomy and adenoidectomy Family History Father No problems noted. Mother Diabetes Hypertension Asthma Social History Housing: House Alcohol intake: current Alcohol intake frequency: former alcohol drinker Alcohol type: beer Patient Tobacco Use Status: Former Tobacco user e-Cigarette/Vaping Use: Never Used Second Hand Smoke Exposure: Yes service: No Current occupational status: employed Cognitive needs: No Hearing needs: No Vision needs: Yes (Glasses) Questionnaire PHQ-9 Over the last 2 weeks, how often have you been bothered by any of the following problems? Depression Screening Interpretation: Negative Depression Screening Done: Yes Source: Developed by Drs. Mahendra Gonzalez, Howard Gates and colleagues, with an educational festus from [employer] Thrive Questionnaire Date Thrive assessed: 05/07/25 I am a: Patient What is your living situation today?: I choose not to answer this question Within the past 12 months, did the food you bought not last and you didn't have the money to get more?: I choose not to answer this question Within the past 12 months, did you worry whether your food would run out before you got money to buy more?: Never true Do you have trouble paying for medicines?: No Do you have trouble getting transportation to medical appointments?: No Do you have trouble paying your heating and electricity bill?: No Do you have trouble taking care of your child, family member or friend?: No Do you have trouble with day-to-day activities such as bathing, preparing meals, shopping, managing finances, etc.?: No Are you currently unemployed and looking for a job?: No Are you interested in more education?: I choose not to answer this question Please select the resources that you would like help with: None Currently or been in a relationship where the following occur: I choose not to answer THRIVE Score: 0 AUDIT C Alcohol Use Questionnaire (AUDIT-C) 2. How many drinks containing alcohol do you have on a typical day when you are drinking?: 1 or 2 3. How often do you have six or more drinks on one occasion?: Never Total Score: 0 Score Reviewed/Action Taken: Yes BRITTNI-7 AMB Questionnaire BRITTNI-7 Date BRITTNI - 7 assessed: 01/04/25 Source: Developed by Drs. Mahendra Gonzalez, Howard Gates and colleagues, with an educational festus from [employer] Review of Systems Const Denies chills, Denies fatigue, Denies fever(s) and Denies headache(s) ENT Denies dysphagia, Denies dizziness, Denies otalgia, Denies headache(s), Denies neck pain, Denies odynophagia and Denies sore throat Card Denies chest pain, Denies palpitations and Denies dyspnea Resp Denies chest congestion, Denies cough and Denies dyspnea GI Denies abdominal pain, Denies constipation, Denies dysphagia, Denies heartburn, Denies diarrhea, Denies nausea, Denies odynophagia and Denies vomiting Denies difficulty urinating, Denies dysuria, Denies nocturia and Denies urinary frequency Musc Denies back pain and Denies neck pain Skin/Breast Denies rash Neuro Denies dizziness and Denies headache(s) Endo Denies fatigue and Denies palpitations Physical exam (Primary Care) Vital Signs: Last Vital Signs Temp 97.1 F 09/09/25 16:24 Pulse 73 09/09/25 16:24 BP 126/80 09/09/25 16:24 Pulse Ox 98 09/09/25 16:24 Oxygen Delivery Method Room Air 09/09/25 16:24 BMI result Body Mass Index 35.7 Tobacco/Smoking Status: Tobacco use Status Tobacco use date assessed 09/09/25 09/09/25 16:32 Patient Tobacco Use Status Former Tobacco user 09/09/25 16:32 e-Cigarette/Vaping Use Never Used 09/09/25 16:32 Depression Screening Interpretation: Negative Thrive Assessment: Date of Thrive Assessment Date Thrive assessed 05/07/25 09/09/25 16:32 Currently or been in a relationship where the following occur: I choose not to answer Const General: no acute distress and alert HENMT Ears: TM's normal bilaterally and EAC's normal Throat: Yes posterior oropharynx normal and Yes tonsils normal (no TP congestion) Neck Neck: Yes supple and No lymphadenopathy Thyroid: Thyroid normal Resp Auscultation: clear to auscultation bilaterally, no rales and no wheezes Cardio Rate: regular rate Rhythm: regular rhythm Heart sounds: no murmurs GI Palpation (GI): Soft to palpation and nontender Auscultation: normal bowel sounds General: Yes no CVA tenderness Back/Spine/Pelvis Back: no CVA tenderness Thoracic/Lumbar Spine: No lumbar spinal tenderness Skin Rashes: no rashes Extrem General: Yes no clubbing, cyanosis or edema Coding Level of Care Code Est Pt Level 4 (65786) Diagnoses Pure hypercholesterolemia E78.00 Benign essential hypertension I10 Iron deficiency anemia secondary to inadequate dietary iron intake D50.8 Iron deficiency anemia type: inadequate dietary iron intake Vitamin D deficiency E55.9 Obstructive sleep apnea G47.33 Obesity (BMI 30-39.9) E66.9 Assessment & Plan Assessment & Plan (1) Pure hypercholesterolemia: Code(s): E78.00 - Pure hypercholesterolemia, unspecified Category: Medical Plan: Patient was not able to get his follow-up labs done prior to his appointment today states that he will try to get these done NICK Reinforced low cholesterol diet Continue Atorvastatin 10 mg QD Will recheck his labs and fasting lipids in 4 months for follow up (2) Benign essential hypertension: Code(s): I10 - Essential (primary) hypertension Category: Medical Plan: Reinforced low sodium diet - goal is systolic BP of 120 mm or less Continue Lisinopril 5 mg QD Patient is reminded to continue monitoring his blood pressure regularly (3) Anemia, iron deficiency: Code(s): D50.9 - Iron deficiency anemia, unspecified Category: Medical Qualifiers: Iron deficiency anemia type: inadequate dietary iron intake Qualified Code(s): D50.8 - Other iron deficiency anemias Plan: Continue Ferrous sulfate 325 mg QD Will continue to monitor his CBC regularly (4) Vitamin D deficiency: Code(s): E55.9 - Vitamin D deficiency, unspecified Category: Medical Plan: Continue Vitamin D3 5000 units QD (5) Obstructive sleep apnea: Code(s): G47.33 - Obstructive sleep apnea (adult) (pediatric) Category: Medical Plan: Follow up with Sleep Medicine as scheduled (6) Obesity (BMI 30-39.9): Code(s): E66.9 - Obesity, unspecified Category: Medical Plan: Reinforced diet/exercise as tolerated/lose weight Plan Follow up in 4 months Orders: Orders Complete Blood Count Auto Diff 4 Months D64.9 - Anemia, unspecified Comprehensive [place]. Panel Fast 4 Months E78.00 - Pure hypercholesterolemia, unspecified Lipid Panel 4 Months E78.00 - Pure hypercholesterolemia, unspecified TSH reflex Free T4 4 Months E78.00 - Pure hypercholesterolemia, unspecified UA CC w/rflx Micro + Cult 4 Months R30.0 - Dysuria Vitamin D 25-OH Total 4 Months E55.9 - Vitamin D deficiency, unspecified
== END 2025-09-09 17:19 | disposition home or self-care (01) ==
LOC: HO.HMCH 16:23
PROVIDERS: PCP Internal Medicine; Visit Provider Internal Medicine
DX: E78.00 Pure hypercholesterolemia, unspecified (principal); I10 Essential (primary) hypertension; Z68.35 Body mass index [BMI] 35.0-35.9, adult; E66.9 Obesity, unspecified; D50.8 Other iron deficiency anemias; E55.9 Vitamin D deficiency, unspecified; G47.33 Obstructive sleep apnea (adult) (pediatric)

== ENCOUNTER 2025-09-16 06:02 | Outpatient (REF) | payer OTHER, SELFPAY ==
--- OUTSIDE RECORDS SUMMARY | 2025-09-16 06:05 | XMS_ITS ---
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 This is a 65 year old male who is an established patient who is being seen for a chief complaintof a skin lesion.Location: right scalpQuality: enlarging and sometimes itchySeverity: mildDuration:yearsReason for Visit: evaluation and managementPertinent Negatives: no history of previous skin cancer, no family history of melanoma, and no family history of non-melanoma skin cancerAdditional History: Patient presents for a skin lesion on the scalp. Pt feels it???s getting bigger and is sometimes itchy. This was brought up to a previous provider but we were only monitoring the site. 2. This is a 65 year old male who is following up for seborrheic dermatitis on the scalp. He was seen on September 07, 2024, at which time he was prescribed Ketoconazole 2 % shampoo BIW (Apply and lather shampoo to scalp, leave on for 5- 10 min. Use daily or as needed for symptoms.).Since then, the patient states the seborrheic dermatitis is stable.The patient presents for focused visit.Interval History: Pt reports his scalp is well controlled. Pt requesting refill on ketoconazole shampoo. Medications Medication Generic Name RxNorm Strength Strength Unit Route Dose Dose Form Frequency Date Started Date Ended Status Indication Sig ketoconazol e ketocona zole 974706 2 % Topica l shamp oo BIW 07/29/20 23 active Appl y and lath er sham poo to scal p, leav e on for 5-10 min. Use rocio y or as need ed for symp toms . atorvastati n atorvast atin Oral active lisinopril lisinopr il Oral active active Problems Problem Code Type Status Date of Diagnosis Da te of Resolution Senile hyperkeratosis (disorder) 823716984(SN OMED) Diagnosis active 05/02/2017 Seborrheic dermatitis (disorder) 58148178(SNO MED) Diagnosis active 07/29/2023 Seborrheic keratosis (disorder) 858789275(SN OMED) Diagnosis active 07/29/2023 Increased blood pressure (finding) 03503220(SNO MED) Problem active History of hypertension (situation) 015880637(SN OMED) Problem active Seborrheic dermatitis (disorder) 50695568(SNO MED) Diagnosis active 09/07/2024 Seborrheic keratosis (disorder) 308255750(SN OMED) Diagnosis active 09/07/2024 Seborrheic dermatitis (disorder) 12056792(SNO MED) Diagnosis active 09/11/2025 Seborrheic keratosis (disorder) 432363192(SN OMED) Diagnosis active 09/11/2025 Results No data Encounters Service provided at [address], [facility], [place], [place] [id number]. Office phonenumber is [phone]. Office fax number is [phone]. Encounter Diagnosis Location Date / Time Type Disc harge Status Seborrheic Dermatitis (L21.8)Seborrheic Keratosis (L82.1) [facility] 09/11/2025 20:00:00 [facility] [id number] Reason For Referral No data Procedures Procedure Date Documentation of past medical history (p rocedure) Documentation of past medical history (p rocedure) Documentation of past medical history (p rocedure) Documentation of past medical history (p rocedure) Bowl resection blockage Review Of Systems Provider reviewed on Sep 11, 2025.A focused review of systems was performed including Integumentary.No Problems With Healing And No Problems With Scarring (hypertrophic Or Keloid). Assessment 1.Seborrheic DermatitisPrescription: ketoconazole 2 % shampoo TP Frequency: BIWCounselingPrescription Medication Management: Plan - - Continue ketoconazole 2% shampoo to scalp, leave on for 5-10 min.Use daily or as needed for symptoms.2.Seborrheic KeratosisCounselingPointed Out by PatientReassurancePhoto- Documentation:.Additional Notes Plan of Care Future visit for 09/11/2026 - Follow up in 1 year for: Focused Visit - 15 minutes. Other Instructions: f/u [facility]. Other Instructions: f/u [facility]. Code Detail Instructions [id number] ketoconazole 2 % shampoo Apply a nd lather shampoo to scalp, leave on for 5-10 min. Use daily or as needed for symptoms. 115162 ketoconazole 2 % shampoo Apply a nd lather shampoo to scalp, leave on for 5-10 min. Use daily or as needed for symptoms. 543585 ketoconazole 2 % shampoo Apply a nd lather shampoo to scalp, leave on for 5-10 min. Use daily or as needed for symptoms. 299348 ketoconazole 2 % shampoo Apply a nd lather shampoo to scalp, leave on for 5-10 min. Use daily or as needed for symptoms. 262771 ketoconazole 2 % shampoo Apply a nd lather shampoo to scalp, leave on for 5-10 min. Use daily or as needed for symptoms. 512925 ketoconazole 2 % shampoo Apply a nd lather shampoo to scalp, leave on for 5-10 min. Use daily or as needed for symptoms. 507580 ketoconazole 2 % shampoo Apply a nd lather shampoo to scalp, leave on for 5-10 min. Use daily or as needed for symptoms. Instructions * I counseled the patient regarding the following:Skin care: Emollients, shampoos with tar, selenium or zinc pyrithione can improve seborrheic dermatitis.Expectations: Seborrheic Dermatitis is chronic in nature with periods of remissions and flares. Flares can be triggered by stress.Contact office if: Seborrheic dermatitis worsens, or fails to improve despite several months of treatment.I recommended the following: Topical Antifungals * I counseled the patient regarding the following:Skin Care: Seborrheic Keratoses are benign. No treatment is necessary.Expectations: Seborrheic Keratoses are benign warty growths. Patients get more ofthem as they age. Social History Code Activity Start Date End Date [id number] (SNOMED) Former smoker Sex Male Sexual orientation Don't Know Gender identity Unspecified Vital Signs No data Insurances Coverage Status Coverage Type Relationship to Subscriber Member Identifier Subscriber Identifier Group Identifier Payer Identifier Inactive 1 Self [id number] Active Self [id number]
[2025-09-16 06:14] LABS: MANUAL DIFF FLAG NO
[2025-09-16 07:55] LABS: Hematocrit 46.7 % (42.0-52.0); Hemoglobin 16.1 g/dl (14.0-18.0); Imm Gran Abs Auto 0.04 X10*3/uL (0.00-0.03); Imm Gran Pct Auto 0.7 % (0.0-0.4); Lymphocytes Absolute Auto 1.7 X10*3/uL (1.2-4.9); Mean Corpuscular HGB Conc 34.5 g/dl (31.0-36.0); Mean Corpuscular Hemoglobin 30.1 pg (27.0-33.0); Mean Corpuscular Volume 87.5 fL (80.0-98.0); NRBC Abs Auto 0.000 X10*3/uL (0.0-0.012); NRBC Pct Auto 0.0 /100WBC (0.0-0.2); Platelet Count 194 X10*3/uL (160-400); Red Blood Count 5.34 X10*6/uL (4.60-5.80); White Blood Count 5.8 X10*3/uL (4.8-10.8)
[2025-09-16 08:27] LABS: Alanine Aminotransferase 34 U/L (0-40); Albumin Level 4.4 g/dL (3.5-5.0); Alkaline Phosphatase 64 U/L (39-117); Anion Gap 11 (12-20); Aspartate Amino Transferase 25 U/L (5-37); Blood Urea Nitrogen 12 mg/dL (9-16); Calcium 9.2 mg/dL (8.4-10.2); Carbon Dioxide 26 mmol/L (22-29); Chloride 107 mmol/L (96-108); Cholesterol 162 mg/dL (<200); Estimated Glomerular Filt Rate > 60; HDL Cholesterol 35 mg/dL (>40); Potassium 4.3 mmol/L (3.3-5.1); Sodium 140 mmol/L (135-145); Total Protein 6.7 g/dL (6.5-8.0); Triglycerides 134 mg/dL (<150)
== END 2025-09-16 06:03 | disposition home or self-care (01) ==
LOC: HO.LAB 06:02
PROVIDERS: PCP Internal Medicine; Visit Provider Internal Medicine
DX: E78.00 Pure hypercholesterolemia, unspecified (principal); D64.9 Anemia, unspecified
CPT/HCPCS: 36415; 80053; 80061; 85025